=== PATIENT | female | born 1990 | race Caucasian/White ===

== ENCOUNTER 2018-04-16 19:14 | Emergency (ER) | payer OTHER ==
[~2018-04-16 19:14] MED LIST: FAMO20TA28 PO; FERR325T24 PO; FOLI0.4T56 PO; HYDR-385 PO; IBUP800T37 PO; OMEG500C7 PO; PREN-127 PO
[2018-04-16 19:22] VITALS: BP 121/85
--- NOTE | 2018-04-16 19:23 | ER Report ---
History and Physical Time Seen By MD: 19:23 HPI/ROS CHIEF COMPLAINT: epigastric pain HISTORY OF PRESENT ILLNESS: This is a 27 year old female. She has some stomach pain in the epigastric area. Started this morning. Has had this in the past with later half of . Had been hiking today, and has had several bottles of water to drink, but has not urinated this afternoon. Her CHIEF PSYCHOLOGIST is evaluating her for vaginal infection. No dysuria. No bowel problems. 11 weeks , no vaginal bleeding. No leakage of fluid. Has nausea but no vomiting. No shortness of breath and no chest pain. Allergies: Coded Allergies: latex (Verified Allergy, Unknown, hives, rash, 07/02/16) Home Meds Active Scripts Amoxicillin (AMOXICILLIN) 500 Mg Capsule, 1 CAP PO Q8H, #15 CAPSULE 0 Refills Prov:DAWOOD DALE MD 04/16/18 Reported Medications Vits W-Ca,Fe,Fa(<1MG) ( VITAMINS) 1 Each Tablet, 1 EACH PO DAILY, TAB 06/14/16 Discontinued Reported Medications Famotidine (PEPCID) 20 Mg Tablet, 20 MG PO QDAY, #10 TAB 06/14/16 Discontinued Scripts Ibuprofen (IBUPROFEN) 800 Mg Tablet, 800 MG PO Q8H, #20 TAB 0 Refills Prov:JUSTINA KRAMER DO 07/01/16 Hydrocodone Bit/Acetaminophen (HYDROCODON-ACETAMINOPHEN 5-325) 1 Each Tablet, 1 EACH PO Q4H Y for PAIN, #30 TAB 0 Refills Prov:JUSTINA KRAMER DO 07/01/16 Reviewed Nurses Notes: Yes Hx Smoking: No Smoking Status: Never Smoker Exposure to Second Hand Smoke?: No Constitutional Vital Sign - Last 24 Hours 04/16/18 19:22 Temp 98.5 Pulse 73 Resp 18 B/P (MAP) 121/85 Pulse Ox 99 O2 Delivery Room Air Intake and Output 04/16/18 04/16/18 04/17/18 14:59 22:59 06:59 Intake Total 1000 ml Balance 1000 ml Physical Exam General Appearance: The patient is alert. No acute distress. Non-toxic in appearance. Eyes: Pupils are equal, round. Reactive to light. No pallor, injection or icterus. Extraocular movements are intact. ENT: Mucous membranes are moist. Normal oral mucosa. Posterior oropharynx is normal. Neck: Supple and non tender. Respiratory: Lungs are clear to auscultation. Cardiovascular: Regular rate and rhythm. No murmurs, gallops or rubs. Normal capillary refill. No edema. Gastrointestinal: Abdomen is soft, tender in the epigastric area. Nondistended. No masses or organomegaly. Normal active bowel sounds. No costovertebral angle tenderness with percussion. Neurological: Alert and oriented x3. No focal neurologic deficits Skin: Warm and dry. Sunburn Musculoskeletal: Extremities are nontender. No tenderness in palpation of the cervical, thoracic and lumbar spine. DIFFERENTIAL DIAGNOSIS: After history and physical exam, differential diagnosis was considered for patient with epigastric pain including but not limited to biliary colic, cholecystitis, peptic ulcer disease, pancreatitis, and gastroenteritis. Medical Decision Making Data Points Result Diagram: 04/16/18 1749 04/16/18 1749 Laboratory Hematology Test 04/16/18 17:49 04/16/18 21:30 Red Blood Count 4.87 M/uL (4.17-5.56) Mean Corpuscular Volume 85.6 fL (80.0-96.0) Mean Corpuscular Hemoglobin 29.3 pg (26.0-33.0) Mean Corpuscular Hemoglobin Concent 34.3 g/dL (32.0-36.0) Red Cell Distribution Width 13.3 % (11.5-14.5) Mean Platelet Volume 8.9 fL (7.2-11.1) Neutrophils (%) (Auto) 74.4 % (39.4-72.5) Lymphocytes (%) (Auto) 19.4 % (17.6-49.6) Monocytes (%) (Auto) 5.3 % (4.1-12.4) Eosinophils (%) (Auto) 0.7 % (0.4-6.7) Basophils (%) (Auto) 0.2 % (0.3-1.4) Nucleated RBC Relative Count (auto) 0.1 /100WBC Neutrophils # (Auto) 9.6 K/uL (2.0-7.4) Lymphocytes # (Auto) 2.5 K/uL (1.3-3.6) Monocytes # (Auto) 0.7 K/uL (0.3-1.0) Eosinophils # (Auto) 0.1 K/uL (0.0-0.5) Basophils # (Auto) 0.0 K/uL (0.0-0.1) Nucleated RBC Absolute Count (auto) 0.01 K/uL Sodium Level 136 mmol/L (137-145) Potassium Level 3.3 mmol/L (3.5-5.0) Chloride Level 100 mmol/L (98-107) Carbon Dioxide Level 25 mmol/L (22-31) Blood Urea Nitrogen 17 mg/dl (7-18) Creatinine 0.70 mg/dl (0.52-1.04) Glomerular Filtration Rate Calc > 60.0 Random Glucose 97 mg/dl (75-110) Calcium Level 9.6 mg/dl (8.4-10.2) Total Bilirubin 0.3 mg/dl (0.2-1.3) Aspartate Amino Transf (AST/SGOT) 16 U/L (0-35) Alanine Aminotransferase (ALT/SGPT) 20 U/L (0-56) Alkaline Phosphatase 56 U/L (0-126) Total Protein 5.8 gm/dl (6.3-8.2) Albumin 3.9 g/dl (3.5-5.0) Amylase Level 71 U/L (0-110) Lipase 117 U/L (23-300) Helicobacter pylori IgG Antibody Negative (NEGATIVE) Urine Color Yellow Urine Clarity Slightly-cloudy Urine pH 5.0 pH (4.8-9.5) Urine Specific [place] 1.018 Urine Protein Negative mg/dL (NEGATIVE) Urine Glucose (UA) Negative mg/dL (NEGATIVE) Urine Ketones Trace mg/dL (NEGATIVE) Urine Blood Negative (NEGATIVE) Urine Nitrite Negative (NEGATIVE) Urine Bilirubin Negative (NEGATIVE) Urine Urobilinogen Negative mg/dL (0.2-1.9) Urine Leukocyte Esterase Large (NEGATIVE) Urine RBC 2 /HPF (0-2/HPF) Urine WBC 15 /HPF (0-5/HPF) Urine Squamous Epithelial Cells Many /LPF (</=FEW) Urine Bacteria Few /HPF (NONE-FEW) Urine Mucus Few /HPF (NONE-FEW) Chemistry Test 04/16/18 17:49 04/16/18 21:30 White Blood Count 12.9 k/uL (4.5-11.0) Red Blood Count 4.87 M/uL (4.17-5.56) Hemoglobin 14.3 g/dL (12.0-16.0) Hematocrit 41.6 % (34.0-47.0) Mean Corpuscular Volume 85.6 fL (80.0-96.0) Mean Corpuscular Hemoglobin 29.3 pg (26.0-33.0) Mean Corpuscular Hemoglobin Concent 34.3 g/dL (32.0-36.0) Red Cell Distribution Width 13.3 % (11.5-14.5) Platelet Count 200 K/uL (150-450) Mean Platelet Volume 8.9 fL (7.2-11.1) Neutrophils (%) (Auto) 74.4 % (39.4-72.5) Lymphocytes (%) (Auto) 19.4 % (17.6-49.6) Monocytes (%) (Auto) 5.3 % (4.1-12.4) Eosinophils (%) (Auto) 0.7 % (0.4-6.7) Basophils (%) (Auto) 0.2 % (0.3-1.4) Nucleated RBC Relative Count (auto) 0.1 /100WBC Neutrophils # (Auto) 9.6 K/uL (2.0-7.4) Lymphocytes # (Auto) 2.5 K/uL (1.3-3.6) Monocytes # (Auto) 0.7 K/uL (0.3-1.0) Eosinophils # (Auto) 0.1 K/uL (0.0-0.5) Basophils # (Auto) 0.0 K/uL (0.0-0.1) Nucleated RBC Absolute Count (auto) 0.01 K/uL Glomerular Filtration Rate Calc > 60.0 Calcium Level 9.6 mg/dl (8.4-10.2) Total Bilirubin 0.3 mg/dl (0.2-1.3) Aspartate Amino Transf (AST/SGOT) 16 U/L (0-35) Alanine Aminotransferase (ALT/SGPT) 20 U/L (0-56) Alkaline Phosphatase 56 U/L (0-126) Total Protein 5.8 gm/dl (6.3-8.2) Albumin 3.9 g/dl (3.5-5.0) Amylase Level 71 U/L (0-110) Lipase 117 U/L (23-300) Helicobacter pylori IgG Antibody Negative (NEGATIVE) Urine Color Yellow Urine Clarity Slightly-cloudy Urine pH 5.0 pH (4.8-9.5) Urine Specific [place] 1.018 Urine Protein Negative mg/dL (NEGATIVE) Urine Glucose (UA) Negative mg/dL (NEGATIVE) Urine Ketones Trace mg/dL (NEGATIVE) Urine Blood Negative (NEGATIVE) Urine Nitrite Negative (NEGATIVE) Urine Bilirubin Negative (NEGATIVE) Urine Urobilinogen Negative mg/dL (0.2-1.9) Urine Leukocyte Esterase Large (NEGATIVE) Urine RBC 2 /HPF (0-2/HPF) Urine WBC 15 /HPF (0-5/HPF) Urine Squamous Epithelial Cells Many /LPF (</=FEW) Urine Bacteria Few /HPF (NONE-FEW) Urine Mucus Few /HPF (NONE-FEW) Urinalysis Test 04/16/18 21:30 Urine Color Yellow Urine Clarity Slightly-cloudy Urine pH 5.0 pH (4.8-9.5) Urine Specific [place] 1.018 Urine Protein Negative mg/dL (NEGATIVE) Urine Glucose (UA) Negative mg/dL (NEGATIVE) Urine Ketones Trace mg/dL (NEGATIVE) Urine Blood Negative (NEGATIVE) Urine Nitrite Negative (NEGATIVE) Urine Bilirubin Negative (NEGATIVE) Urine Urobilinogen Negative mg/dL (0.2-1.9) Urine Leukocyte Esterase Large (NEGATIVE) Urine RBC 2 /HPF (0-2/HPF) Urine WBC 15 /HPF (0-5/HPF) Urine Squamous Epithelial Cells Many /LPF (</=FEW) Urine Bacteria Few /HPF (NONE-FEW) Urine Mucus Few /HPF (NONE-FEW) ED Course/Re-evaluation Clinical Indication for ER IV: Hydration, IV Access ED Course Labs show mild elevation of white count. Mild decrease in potassium. Urinalysis with changes that could represent infection vs contamination. Culture ordered. Started on Amoxicillin. Also seemed dehydrated. Two liter os normal saline were given. Also Pepcid, and sounds like she has a history of some gastritis with last so will restart Pepcid. Decision to Disposition Date: Apr 16, 2018 Decision to Disposition Time: 21:55 Depart Departure Latest Vital Signs Vital Signs Date Time Temp Pulse Resp B/P (MAP) Pulse Ox O2 Delivery O2 Flow Rate FiO2 04/16/18 19:22 98.5 73 18 121/85 99 Room Air Impression: Primary Impression: Urinary tract infection Additional Impression: Gastritis Condition: Improved Disposition: HOME OR SELF-CARE New Scripts Amoxicillin (AMOXICILLIN) 500 Mg Capsule 1 CAP PO Q8H, #15 CAPSULE 0 Refills Prov: DAWOOD DALE MD 04/16/18 Patient Instructions: Gastritis (ED), Urinary Tract Infection in Women (ED) Additional Instructions: We are running a culture on your urine. Based on results the changes seen in the urine could represent an infection or contamination from skin bacteria and cells. Call and let your CHIEF PSYCHOLOGIST know you were here in the ER today. Take Amoxicillin 500mg three times a day for 5 days. Take Pepcid 20mg, once or twice a day as needed. You can also continue to take TUMS. Increase fluid intake over the next few days. Problem Qualifiers Primary Impression: Urinary tract infection Urinary tract infection type: acute cystitis Hematuria presence: without hematuria Qualified Codes: N30.00 - Acute cystitis without hematuria Additional Impression: Gastritis Gastritis type: unspecified gastritis Chronicity: acute Gastritis bleeding : without bleeding Qualified Codes: K29.00 - Acute gastritis without bleeding DAWOOD DALE MD Apr 16, 2018 19:23
[2018-04-16] MEDS ORDERED: NS(*) 0.9% 1000 ML BAG 1,000 ML IV ONE ×2 (19:40→20:50)
[2018-04-16] MEDS ORDERED: FAMOTIDINE(*) 20MG/50ML PREMIX 50 ML IVPB ONE (19:40)
[2018-04-16 20:00] LABS: PLATELET COUNT, AUTOMATED 200 K/uL (150-450)
[2018-04-16] MEDS ORDERED: AMOXICILLIN 500 MG CAP PO ONE (21:55)
[2018-04-16] MEDS ORDERED: AMOX-362 PO (21:56)
== END 2018-04-16 22:09 | disposition home or self-care (01) ==
LOC: ER 19:23
DX: O23.41 Unspecified infection of urinary tract in pregnancy, first trimester (principal); O26.891 Other specified pregnancy related conditions, first trimester; Z3A.11 11 weeks gestation of pregnancy
CPT/HCPCS: 81001; 82150; 83690; 85025; 86677; 87088; 96361; 96365; 99284; J3490; J7030; 82040; 82247; 82310; 82374; 82435; 82565; 82947; 84075; 84132; 84155; 84295; 84450; 84460; 84520

== ENCOUNTER 2018-05-13 01:11 | Observation (INO) | payer OTHER ==
[2018-05-13] VITALS (10 sets, daily range): BP systolic 63–127; BP diastolic 55–80
[~2018-05-13 01:11] MED LIST changes: +AMOX-362 PO
[2018-05-13] MEDS ORDERED: NS(*) 0.9% 1000 ML BAG 1,000 ML IV ONE (01:13)
--- NOTE | 2018-05-13 01:13 | ER Report ---
History and Physical Time Seen By MD: 01:12 HPI/ROS CHIEF COMPLAINT: Diffuse abdominal pain starting at approximately 1900 hrs. HISTORY OF PRESENT ILLNESS: Patient is a 27-year-old female here 14 weeks with complaints of diffuse severe abdominal pain since approximately 1900 hrs. Patient reports that she does have some whitish vaginal discharge however she denies hematuria, vaginal bleeding, blood in the stool, fevers, , chest pain, shortness breath. Patient does complain of nausea and vomiting since time of onset. Patient has had one previous that was brought to full-term delivery. Patient denies dysuria, burning with urination, foul- smelling urine, flank pain. Patient was seen in the emergency department earlier this month for similar symptoms and was diagnosed with a UTI/gastritis and started on amoxicillin as well as Tums. Patient reports alleviation of symptoms until this evening. Patient did take antacids prior to arrival without relief of symptoms. REVIEW OF SYSTEMS: Constitutional: No fever, no chills. Eyes: No discharge. ENT: No sore throat. Cardiovascular: No chest pain, no palpitations. Respiratory: No cough, no shortness of breath. Gastrointestinal: + diffuse abdominal pain, + nausea and vomiting. Genitourinary: No hematuria, + vaginal white discharge Musculoskeletal: No back pain. Skin: No rashes. Neurological: No headache. Allergies: Coded Allergies: latex (Verified Allergy, Unknown, hives, rash, 07/02/16) Home Meds Reported Medications Vits W-Ca,Fe,Fa(<1MG) ( VITAMINS) 1 Each Tablet, 1 EACH PO DAILY, TAB 06/14/16 Discontinued Scripts Amoxicillin (AMOXICILLIN) 500 Mg Capsule, 1 CAP PO Q8H, #15 CAPSULE 0 Refills Prov:DAWOOD DALE MD 04/16/18 Past Medical/Surgical History Vaginal Delivery at Term Hx Smoking: No Smoking Status: Never Smoker Exposure to Second Hand Smoke?: No Hx Substance Use Disorder: No Hx Alcohol Use: No Constitutional Vital Sign - Last 24 Hours 05/13/18 05/13/18 05/13/18 05/13/18 01:14 01:16 01:21 01:30 Temp 97.9 Pulse 61 68 Resp 16 B/P (MAP) 111/68 111/68 (82) 128/94 (105) Pulse Ox 97 97 O2 Delivery Room Air 05/13/18 05/13/18 05/13/18 05/13/18 01:36 01:51 02:00 02:06 Pulse 69 72 61 B/P (MAP) 93/55 (68) Pulse Ox 97 93 97 05/13/18 05/13/18 05/13/18 05/13/18 02:21 02:30 02:36 02:51 Pulse 62 72 72 B/P (MAP) 108/73 (85) Pulse Ox 96 95 95 05/13/18 05/13/18 05/13/18 05/13/18 03:00 03:06 03:11 03:26 Pulse 73 ? B/P (MAP) 113/77 (89) Pulse Ox 96 97 05/13/18 05/13/18 05/13/18 05/13/18 03:27 03:30 03:41 03:56 Pulse 71 66 B/P (MAP) 112/80 (91) 118/78 (91) Pulse Ox 96 97 05/13/18 05/13/18 05/13/18 05/13/18 04:00 04:20 04:30 04:35 Pulse 88 ??? B/P (MAP) 121/79 (93) 113/74 (87) Pulse Ox 96 95 05/13/18 05/13/18 04:50 05:00 Pulse 80 B/P (MAP) 102/71 (81) Pulse Ox 95 Physical Exam General Appearance: The patient is alert, has no immediate need for airway protection and no signs of toxicity. + uncomfortable due to abdominal pain Eyes: Pupils equal and round no pallor or injection. ENT, Mouth: Mucous membranes are moist. Respiratory: There are no retractions, lungs are clear to auscultation. Cardiovascular: Regular rate and rhythm. Gastrointestinal: Abdomen is soft and + diffusely tender, no masses, bowel sounds normal. Neurological: + No focal deficits Skin: Warm and dry, no rashes. Musculoskeletal: Neck is supple non tender. DIFFERENTIAL DIAGNOSIS: After history and physical exam differential diagnosis was considered for miscarriage, urinary tract infection, ectopic , gastroenteritis, viral or bacterial intra-abdominal infection. Medical Decision Making Data Points Result Diagram: 05/13/18 0128 05/13/18 0128 Laboratory Hematology Test 05/13/18 01:28 6/29/18 03:27 Red Blood Count 4.48 M/uL (4.17-5.56) Mean Corpuscular Volume 85.5 fL (80.0-96.0) Mean Corpuscular Hemoglobin 29.3 pg (26.0-33.0) Mean Corpuscular Hemoglobin Concent 34.3 g/dL (32.0-36.0) Red Cell Distribution Width 13.2 % (11.5-14.5) Mean Platelet Volume 8.7 fL (7.2-11.1) Neutrophils (%) (Auto) 83.0 % (39.4-72.5) Lymphocytes (%) (Auto) 11.4 % (17.6-49.6) Monocytes (%) (Auto) 3.9 % (4.1-12.4) Eosinophils (%) (Auto) 1.1 % (0.4-6.7) Basophils (%) (Auto) 0.6 % (0.3-1.4) Nucleated RBC Relative Count (auto) 0.0 /100WBC Neutrophils # (Auto) 10.8 K/uL (2.0-7.4) Lymphocytes # (Auto) 1.5 K/uL (1.3-3.6) Monocytes # (Auto) 0.5 K/uL (0.3-1.0) Eosinophils # (Auto) 0.1 K/uL (0.0-0.5) Basophils # (Auto) 0.1 K/uL (0.0-0.1) Nucleated RBC Absolute Count (auto) 0.00 K/uL Sodium Level 134 mmol/L (137-145) Potassium Level 3.3 mmol/L (3.5-5.0) Chloride Level 101 mmol/L (98-107) Carbon Dioxide Level 25 mmol/L (22-31) Blood Urea Nitrogen 11 mg/dl (7-18) Creatinine 0.70 mg/dl (0.52-1.04) Glomerular Filtration Rate Calc > 60.0 Random Glucose 106 mg/dl (75-110) Calcium Level 8.4 mg/dl (8.4-10.2) Total Bilirubin 0.3 mg/dl (0.2-1.3) Aspartate Amino Transf (AST/SGOT) 13 U/L (0-35) Alanine Aminotransferase (ALT/SGPT) 22 U/L (0-56) Alkaline Phosphatase 57 U/L (0-126) C-Reactive Protein 2.6 mg/dl (<1.0) Total Protein 6.5 g/dl (6.3-8.2) Albumin 3.4 g/dl (3.5-5.0) Lipase 84 U/L (23-300) Human Chorionic Gonadotropin, Quant 48788 mIU/ml Urine Color Yellow Urine Clarity Cloudy Urine pH 6.0 pH (4.8-9.5) Urine Specific [place] 1.020 Urine Protein Negative mg/dL (NEGATIVE) Urine Glucose (UA) Negative mg/dL (NEGATIVE) Urine Ketones 80 mg/dL (NEGATIVE) Urine Blood Negative (NEGATIVE) Urine Nitrite Negative (NEGATIVE) Urine Bilirubin Negative (NEGATIVE) Urine Urobilinogen Negative mg/dL (0.2-1.9) Urine Leukocyte Esterase Trace (NEGATIVE) Urine RBC 1 /HPF (0-2/HPF) Urine WBC 4 /HPF (0-5/HPF) Urine Squamous Epithelial Cells Many /LPF (</=FEW) Urine Amorphous Crystals Many /HPF Urine Bacteria Negative /HPF (NONE-FEW) Urine Mucus Many /HPF (NONE-FEW) Chemistry Test 05/13/18 01:28 05/13/18 03:27 White Blood Count 13.1 k/uL (4.5-11.0) Red Blood Count 4.48 M/uL (4.17-5.56) Hemoglobin 13.1 g/dL (12.0-16.0) Hematocrit 38.3 % (34.0-47.0) Mean Corpuscular Volume 85.5 fL (80.0-96.0) Mean Corpuscular Hemoglobin 29.3 pg (26.0-33.0) Mean Corpuscular Hemoglobin Concent 34.3 g/dL (32.0-36.0) Red Cell Distribution Width 13.2 % (11.5-14.5) Platelet Count 163 K/uL (150-450) Mean Platelet Volume 8.7 fL (7.2-11.1) Neutrophils (%) (Auto) 83.0 % (39.4-72.5) Lymphocytes (%) (Auto) 11.4 % (17.6-49.6) Monocytes (%) (Auto) 3.9 % (4.1-12.4) Eosinophils (%) (Auto) 1.1 % (0.4-6.7) Basophils (%) (Auto) 0.6 % (0.3-1.4) Nucleated RBC Relative Count (auto) 0.0 /100WBC Neutrophils # (Auto) 10.8 K/uL (2.0-7.4) Lymphocytes # (Auto) 1.5 K/uL (1.3-3.6) Monocytes # (Auto) 0.5 K/uL (0.3-1.0) Eosinophils # (Auto) 0.1 K/uL (0.0-0.5) Basophils # (Auto) 0.1 K/uL (0.0-0.1) Nucleated RBC Absolute Count (auto) 0.00 K/uL Glomerular Filtration Rate Calc > 60.0 Calcium Level 8.4 mg/dl (8.4-10.2) Total Bilirubin 0.3 mg/dl (0.2-1.3) Aspartate Amino Transf (AST/SGOT) 13 U/L (0-35) Alanine Aminotransferase (ALT/SGPT) 22 U/L (0-56) Alkaline Phosphatase 57 U/L (0-126) C-Reactive Protein 2.6 mg/dl (<1.0) Total Protein 6.5 g/dl (6.3-8.2) Albumin 3.4 g/dl (3.5-5.0) Lipase 84 U/L (23-300) Human Chorionic Gonadotropin, Quant 48852 mIU/ml Urine Color Yellow Urine Clarity Cloudy Urine pH 6.0 pH (4.8-9.5) Urine Specific [place] 1.020 Urine Protein Negative mg/dL (NEGATIVE) Urine Glucose (UA) Negative mg/dL (NEGATIVE) Urine Ketones 80 mg/dL (NEGATIVE) Urine Blood Negative (NEGATIVE) Urine Nitrite Negative (NEGATIVE) Urine Bilirubin Negative (NEGATIVE) Urine Urobilinogen Negative mg/dL (0.2-1.9) Urine Leukocyte Esterase Trace (NEGATIVE) Urine RBC 1 /HPF (0-2/HPF) Urine WBC 4 /HPF (0-5/HPF) Urine Squamous Epithelial Cells Many /LPF (</=FEW) Urine Amorphous Crystals Many /HPF Urine Bacteria Negative /HPF (NONE-FEW) Urine Mucus Many /HPF (NONE-FEW) Urinalysis Test 05/13/18 03:27 Urine Color Yellow Urine Clarity Cloudy Urine pH 6.0 pH (4.8-9.5) Urine Specific [place] 1.020 Urine Protein Negative mg/dL (NEGATIVE) Urine Glucose (UA) Negative mg/dL (NEGATIVE) Urine Ketones 80 mg/dL (NEGATIVE) Urine Blood Negative (NEGATIVE) Urine Nitrite Negative (NEGATIVE) Urine Bilirubin Negative (NEGATIVE) Urine Urobilinogen Negative mg/dL (0.2-1.9) Urine Leukocyte Esterase Trace (NEGATIVE) Urine RBC 1 /HPF (0-2/HPF) Urine WBC 4 /HPF (0-5/HPF) Urine Squamous Epithelial Cells Many /LPF (</=FEW) Urine Amorphous Crystals Many /HPF Urine Bacteria Negative /HPF (NONE-FEW) Urine Mucus Many /HPF (NONE-FEW) EKG/Imaging Imaging RIGHT LOWER QUADRANT INDICATION: Abdominal pain. 14 weeks 4 days . EXAM DATE: 05/13/2018 1:13 AM COMPARISON: None. TECHNIQUE: Limited grayscale and color Doppler imaging of the right lower quadrant was performed to evaluate for appendicitis. FINDINGS: There is a blind-ending tubular structure in right lower quadrant measuring 15 mm in diameter. There is noncompressible have slightly increased blood flow on color Doppler imaging.. No free fluid or mass demonstrated. IMPRESSION: 15 mm diameter tubular structure in the right lower quadrant suspicious for an inflamed appendix in the appropriate setting. INDICATION: Diffuse abdominal pain. COMPARISON: None. TECHNIQUE: Grayscale, color Doppler and M-mode ultrasound images of the fetus and maternal organs were obtained. FINDINGS: Estimated date of delivery: 11/07/2018. Age by dates: 14 weeks, 4 days Number of fetuses: 1 position: Breech Placental location: Posterior, no previa. Small hypoechoic regions within the placenta likely represent vascular lakes. Cervix: The uterine cervix measures 4.5 cm in length and closed. Amniotic fluid volume: Grossly normal. Biometry as follows: Biparietal diameter: 2.72 cm 14 weeks, 6 days Head circumference: 10.50 cm 15 weeks, 0 days Abdominal circumference: 8.56 cm 14 weeks, 6 days Femur length: 1.55 cm 14 weeks, 4 days Average age by ultrasound: 14 weeks, 6 days Estimated weight: 105 gm weight percentile: 48th %tile anatomic survey was not performed. heart rate is 149 BPM IMPRESSION: 1. Single intrauterine gestation with average ultrasound age of 14 weeks 6 days , corresponding reported gestational age of 14 weeks 4 days. Estimated weight is in the 48th %tile. heart rate is 149 BPM. Full anatomic survey was not performed. 2. Normal uterine cervix, no placenta previa. EXAMINATION: LIMITED ABDOMINAL ULTRASOUND DATE: 05/13/2018 2:29 AM INDICATION: Diffuse abdominal pain. TECHNIQUE: Davis scale, color and pulsed Doppler ultrasound images of the right upper quadrant were obtained. COMPARISON: None. FINDINGS: Pancreas: The pancreas is grossly normal. Aorta and IVC: The imaged abdominal aorta and IVC are patent. Liver: The liver shows normal shape, parenchymal echogenicity and echotexture. The right hepatic lobe measures 16 cm craniocaudal, which is within normal limits. There is no definite focal lesion in the liver. The main portal vein is patent with hepatopedal flow. Bile ducts: The intrahepatic bile ducts are not dilated. The common bile duct measures 2 mm in diameter, which is normal. Gallbladder: The gall bladder is unremarkable with no cholelithiasis, wall thickening, pericholecystic fluid, or sonographic Haas's sign. Kidney: The right kidney measures 10.0 x 3.4 x 4.7 cm. The parenchymal echogenicity and thickness appear within normal range. No focal lesion is demonstrated. No hydronephrosis. No ascites. IMPRESSION: No acute abnormality. ED Course/Re-evaluation ED Course Patient is a 27-year-old female 14 weeks here with complaints of diffuse abdominal pain with whitish vaginal discharge. Patient reports that the pain started approximately 1900 hrs. and has been persistent and constant. She reports having episodes of nausea and vomiting since time of onset. Patient denies vaginal bleeding, hematuria, melena. She has had 1 prior without complications and denies prior surgical procedures of the abdomen. Labs and abdominal ultrasound were ordered for evaluation of abdominal pain and were positive for a leukocytosis of 13,000, ultrasound was unremarkable for suspected appendicitis even though clinical presentation of abdominal pain is diffuse and not localized strictly to the right lower quadrant abdomen. Fentanyl , fluids and Zofran were ordered for symptom management. I discussed the patient with Dr. Abel with general surgery who accepted the patient for surgical intervention at 6:00 this morning. Patient was given a dose of Zosyn and repeat analgesia. Decision to Disposition Date: May 13, 2018 Decision to Disposition Time: 04:20 Depart Departure Latest Vital Signs Vital Signs Date Time Temp Pulse Resp B/P (MAP) Pulse Ox O2 Delivery O2 Flow Rate FiO2 05/13/18 05:00 102/71 (81) 05/13/18 04:50 80 95 05/13/18 01:14 97.9 16 Room Air Impression: Primary Impression: Appendicitis Condition: Improved Disposition: ADMIT FROM ER TO OR FEMI STRICKLAND DO May 13, 2018 01:13
[2018-05-13] MEDS ORDERED: ONDANSETRON 4 MG/2 ML VIAL IVP ONE (01:15)
[2018-05-13] MEDS ORDERED: fentaNYL CITR 100 MCG/2 ML AMP IVP ONE (01:30)
[2018-05-13 01:36] LABS: PLATELET COUNT, AUTOMATED 163 K/uL (150-450)
[2018-05-13] MEDS: HYDROmorphone* 1 MG/ML 1 MG/ML ML IVP ONE ×2 (03:16→03:53)
[2018-05-13] MEDS ORDERED: PIPERACILLIN/TAZO*3.375GM VIAL 3.375 GM in NS(*) 0.9% 100 ML ADDVANT BAG 100 ML IVPB ONE (03:35)
--- NOTE | 2018-05-13 04:04 | RADIOLOGY IMAGING REPORT ---
FACILITY: [facility] PATIENT NAME: Nathaly Zheng : 1990 MR: [id number] V: [id number] EXAM DATE: [id number] ORDERING PHYSICIAN: FEMI STRICKLAND TECHNOLOGIST: Location: [facility] [place] Patient: Nathaly Zheng : 1990 Visit/Account:[id number] Date of Sevice: 05/13/2018 ADDENDUM #1 Patient is reportedly 14 weeks 4 days . Report Dictated By: Erik Rose MD at 05/13/2018 4:02 AM Report E-Signed By: Erik Rose MD at 05/13/2018 4:02 AM ORIGINAL REPORT EXAMINATION: LIMITED ABDOMINAL ULTRASOUND DATE: 05/13/2018 2:29 AM INDICATION: Diffuse abdominal pain. TECHNIQUE: Davis scale, color and pulsed Doppler ultrasound images of the right upper quadrant were ob tained. COMPARISON: None. FINDINGS: Pancreas: The pancreas is grossly normal. Aorta and IVC: The imaged abdominal aorta and IVC are patent. Liver: The liver shows normal shape, parenchymal echogenicity and echotexture. The right hepatic lobe measures 16 cm craniocaudal, which is within normal limits. There is no definite focal lesion in the liver. The main portal vein is patent with hepatopedal flow. Bile ducts: The intrahepatic bile ducts are not dilated. The common bile duct measures 2 mm in diamet er, which is normal. Gallbladder: The gall bladder is unremarkable with no cholelithiasis, wall thickening, pericholecysti c fluid, or sonographic Haas's sign. Kidney: The right kidney measures 10.0 x 3.4 x 4.7 cm. The parenchymal echogenicity and thickness renetta ear within normal range. No focal lesion is demonstrated. No hydronephrosis. No ascites. IMPRESSION: No acute abnormality. Report Dictated By: Erik Rose MD at 05/13/2018 3:58 AM Report E-Signed By: Erik Rose MD at 05/13/2018 4:01 AM WSN:[id number]
--- NOTE | 2018-05-13 04:06 | RADIOLOGY IMAGING REPORT ---
FACILITY: [facility] PATIENT NAME: Nathaly Zheng : 1990 MR: [id number] V: [id number] EXAM DATE: ORDERING PHYSICIAN: FEMI STRICKLAND TECHNOLOGIST: Location: [facility] Patient: Nathaly Zheng : 1990 Visit/Account:[id number] Date of Sevice: 05/13/2018 RIGHT LOWER QUADRANT INDICATION: Abdominal pain. 14 weeks 4 days . EXAM DATE: 05/13/2018 1:13 AM COMPARISON: None. TECHNIQUE: Limited grayscale and color Doppler imaging of the right lower quadrant was performed to evaluate for appendicitis. FINDINGS: There is a blind-ending tubular structure in right lower quadrant measuring 15 mm in diameter. There is noncompressible have slightly increased blood flow on color Doppler imaging.. No free fluid or m ass demonstrated. IMPRESSION: 15 mm diameter tubular structure in the right lower quadrant suspicious for an inflamed a ppendix in the appropriate setting. Dr. Rose discussed this case with FEMI STRICKLAND on 05/13/2018 4:00 AM. Report Dictated By: Erik Rose MD at 05/13/2018 3:52 AM Report E-Signed By: Erik Rose MD at 05/13/2018 4:02 AM WSN:[id number]
--- NOTE | 2018-05-13 04:11 | RADIOLOGY IMAGING REPORT ---
FACILITY: [facility] PATIENT NAME: Nathaly Zheng : 1990 MR: [id number] V: [id number] EXAM DATE: [id number] ORDERING PHYSICIAN: FEMI STRICKLAND TECHNOLOGIST: Location: [facility] Patient: Nathaly Zheng : 1990 Visit/Account:[id number] Date of Sevice: 05/13/2018 EXAMINATION: LIMITED OB ULTRASOUND DATE: 05/13/2018 2:37 AM. INDICATION: Diffuse abdominal pain. COMPARISON: None. TECHNIQUE: Grayscale, color Doppler and M-mode ultrasound images of the fetus and maternal organs wer e obtained. FINDINGS: Estimated date of delivery: 11/07/2018. Age by dates: 14 weeks, 4 days Number of fetuses: 1 position: Breech Placental location: Posterior, no previa. Small hypoechoic regions within the placenta likely repre sent vascular lakes. Cervix: The uterine cervix measures 4.5 cm in length and closed. Amniotic fluid volume: Grossly normal. Biometry as follows: Biparietal diameter: 2.72 cm 14 weeks, 6 days Head circumference: 10.50 cm 15 weeks, 0 days Abdominal circumference: 8.56 cm 14 weeks, 6 days Femur length: 1.55 cm 14 weeks, 4 days Average age by ultrasound: 14 weeks, 6 days Estimated weight: 105 gm weight percentile: 48th %tile anatomic survey was not performed. heart rate is 149 BPM IMPRESSION: 1. Single intrauterine gestation with average ultrasound age of 14 weeks 6 days, corresponding repor briseyda gestational age of 14 weeks 4 days. Estimated weight is in the 48th %tile. heart rat e is 149 BPM. Full anatomic survey was not performed. 2. Normal uterine cervix, no placenta previa. Report Dictated By: Erik Rose MD at 05/13/2018 4:03 AM Report E-Signed By: Erik Rose MD at 05/13/2018 4:08 AM WSN:[id number]
[2018-05-13] MEDS ORDERED: NORMOSOL R SOLN(*) 1000 ML BAG 1,000 ML IV ONE (05:15)
[2018-05-13] MEDS ORDERED: ROPIVACAINE 0.5% 20 ML VIAL ONE (05:20)
--- NOTE | 2018-05-13 05:31 | Gen Surgery History & Physical ---
History of Present Illness Chief Complaint Abdominal pain History of Present Illness 27yo female, otherwise healthy, at 14weeks EGA, presents with abdominal pain that started last evening at about 1900. No N/V. No constipation or diarrhea. She had similar symptoms 1 month ago and she came in to the ER and was found to have a UTI and her symptoms resolved with antibiotics. Her UA during this visit is not c/w a UTI and abdominal U/S c/w appendicitis. OB U/S c /w viable, heathy, intrauterine . GB U/S unremarkable. I have been consulted to manage this patient's appendicitis. History Home Meds Reported Medications Vits W-Ca,Fe,Fa(<1MG) ( VITAMINS) 1 Each Tablet, 1 EACH PO DAILY, TAB 06/14/16 Discontinued Scripts Amoxicillin (AMOXICILLIN) 500 Mg Capsule, 1 CAP PO Q8H, #15 CAPSULE 0 Refills Prov:DAWOOD DALE MD 04/16/18 Allergies: Coded Allergies: latex (Verified Allergy, Unknown, hives, rash, 07/02/16) Review of Systems All Systems Reviewed/Normal: Yes, Except as Noted Gastrointestinal: Abdominal Pain Exam General Appearance: Alert, Awake, No Acute Distress, Afebrile Neuro: No Gross deficits Eyes: PERRLA GI: Other (RLQ TTP with focal peritonitis, gravid uterus with fundal height palpated midway between pubic bone and umbilicus) Extremities: Warm, Perfused Medical Decision Making Data Points Result Diagram: 05/13/18 0128 05/13/18 0128 Assessment and Plan Problems: (1) Appendicitis Status: Acute Assessment & Plan: 05/13/18: Admit, NPO, IV fluids, IV abx, to OR for lap appy. I have explained appendicitis and it's treatment to her in great detail. I have recommended lap appy and I have explained this surgery to her in great detail as well as the alternatives and risks. I have emphasized the risk of labor/miscarriage of her as a result of surgery as well but she could miscarry if surgery isn't performed and her appendix perforates. She seems to understand the PAR discussion and her questions have been answered. She indicates to me that she would like to proceed with this plan including surgery. (2) 14 weeks gestation of Status: Chronic Assessment & Plan: I spoke with the on-call OB via telephone who recommended a U/S postoperatively to monitor her for a viable fetus. Will plan on observing her after surgery to monitor her for signs/symptoms of labor. Condition Stable. Time Spent: < 30 min Venous Thromboembolism VTE Risk Physician Assess for VTE Risk: Yes Patient's VTE Risk: Low VTE Diagnostic Test 2 Days Prior to Admit: No Antithrombotics Is Pt On Any Antithrombotics?: No Problem Qualifiers (1) Appendicitis: Appendicitis type: acute appendicitis Acute appendicitis type: with localized peritonitis Qualified Codes: K35.3 - Acute appendicitis with localized peritonitis JOHANA DAILY MD May 13, 2018 05:31
[2018-05-13] MEDS ORDERED: fentaNYL CITR 250 MCG/5 ML AMP ONE (05:41)
[2018-05-13] MEDS ORDERED: LIDOCAINE 2% IV 100 MG/5ML SYR ONE (05:42)
[2018-05-13] MEDS ORDERED: PROPOFOL EMUL(*) 10MG/ML 20 ML 20 ML ONE (05:43)
[2018-05-13] MEDS ORDERED: DEXAMETHASONE SOD 4 MG/ML VIAL ONE (05:54)
[2018-05-13] MEDS ORDERED: ONDANSETRON 4 MG/2 ML VIAL ONE (05:55)
[2018-05-13] MEDS ORDERED: ROCURONIUM BROM 10 MG/ML 5 ML ONE (06:00)
[2018-05-13] MEDS ORDERED: ePHEDrine 25 MG/5 ML DISP.SYR IVP ONE (06:07)
[2018-05-13] MEDS ORDERED: SUGAMMADEX SOD 200 MG/2 ML SDV ONE (06:26)
[2018-05-13] MEDS ORDERED: NS(*) 0.9% 1000 ML BAG 1,000 ML IV PRN (06:52)
[2018-05-13] MEDS ORDERED: MORPHINE 2 MG/ML SYR IVP PRN (06:55)
[2018-05-13] MEDS ORDERED: ONDANSETRON 4 MG/2 ML VIAL IVP PRN (06:55)
[2018-05-13] MEDS ORDERED: FLUSH 10 ML SYR IVP PRN (06:55)
[2018-05-13] MEDS ORDERED: fentaNYL CITR 100 MCG/2 ML AMP ONE (06:58)
--- NOTE | 2018-05-13 07:01 | Post Operative Progress Note ---
Post Operative Progress Note Date: May 13, 2018 Time: 06:58 Surgeon: Franklyn Anesthesia: GETA by Dr. Koo Pre-Op Diagnosis: Acute appendicitis , 14 week EGA Post-Op Diagnosis: JOSE Findings: Inflamed appendix, no gangrene, perforation, abscess, or purulence Procedure(s): Lap appy Specimen Removed:(May be N/A): appendix Complications: None Fluids: see anesthesia record Estimated Blood Loss: Minimal Date OP Note Dictated: May 13, 2018 Time OP Note Dictated: 07:00 JOHANA DAILY MD May 13, 2018 07:01
[2018-05-13] MEDS: FAMOTIDINE 20 MG TAB PO SCH ×2 (09:00→20:48)
[2018-05-13] MEDS: DOCUSATE SODIUM 100 MG CAP PO SCH ×2 (09:00→20:48)
[2018-05-13] MEDS: [UNRECOGNIZED DRUG - OTHER] PO SCH (09:00)
[2018-05-13] MEDS: IRON PO SCH (09:00)
[2018-05-13] MEDS: PRENATAL PO SCH (09:00)
[2018-05-13] MEDS: MULTIVIT PO SCH (09:00)
--- NOTE | 2018-05-13 12:57 | OPERATIVE REPORT 1 ---
EVENT DATE: May 13, 2018 SURGEON: Leroy Estes MD ANESTHESIOLOGIST: Franco Koo MD ANESTHESIA: General endotracheal. PREOPERATIVE DIAGNOSIS 1. Acute appendicitis. 2. at 14 weeks estimated gestational age. POSTOPERATIVE DIAGNOSIS 1. Acute appendicitis. 2. at 14 weeks estimated gestational age. PROCEDURE PERFORMED Laparoscopic appendectomy. COMPLICATIONS None. CONDITION Stable. BLOOD LOSS Minimal. FINDINGS This patient had a gravid uterus, and we minimized any manipulation of the uterus during the surgery. In fact, there was no manipulation, but we minimized any sort of movement or bumping into it with our instruments. The appendix was thickened and appeared inflamed, but no purulence, gangrene, perforation or abscess. INDICATIONS This is a 27-year-old female who presented to the emergency room with abdominal pain that started last evening at about 7 p.m. She had an elevated white blood cell count, and her ultrasound was suspicious for acute appendicitis. PROCEDURE The patient was brought to the operating room, placed supine on the operating table. General endotracheal anesthesia was administered, and her abdomen was prepped and draped in a sterile fashion. I then injected the infraumbilical skin with 0.5% ropivacaine plain and made a curvilinear smiley face type incision in the inferior umbilical rim. I dissected through the dermis to the subcutaneous fat. I identified the midline fascia. I made a vertical incision in the midline fascia, and then placed two interrupted #0-Vicryl sutures transversely through the vertical fascial defect and then inserted a 12 mm James type port through this wound, and secured it into place with the sutures. I insufflated the abdomen to a pressure of 12 mmHg and then inserted a 5 mm 30-degree angle scope through this port. Next, the patient was placed in Trendelenburg, and I placed a suprapubic midline 5 mm port and a left lower quadrant 5 mm port, both under direct visualization without any problems. I then looked around the abdomen and saw the gravid uterus, which we stayed away from, and tried not to manipulate it at all. I then found her appendix in the right lower quadrant. This was semiretroperitoneal. It was covered with peritoneum all the way around, but it was not quite retrocecal. It seemed to be curled up into a ball. I divided the peritoneum to get into the retroperitoneal space. I divided the peritoneum to get into the retroperitoneal space to mobilize the appendix, and ultimately was able to get it freed up all the way down to its base, and divided the mesoappendix with a harmonic scalpel, and then divided the base of the appendix flush with the cecum with the Endo- JAYDA 45 mm stapler with the blue load. The appendix was placed in a surgical specimen retrieval bag and removed from the abdomen through the umbilical port site. I then inspected the right lower quadrant and the staple line was flush with the cecum and did not interfere with the terminal ileum, and there was no bleeding or other abnormalities. I then removed the 5 mm ports, desufflated the abdomen, removed the camera followed by the umbilical port, and then placed a running #0-Vicryl suture to the midline fascia, and then tied all of these midline Vicryl sutures down with good approximation of the fascial edges and no remaining fascial defect. I then closed the skin at each port site with 4-0 Monocryl running subcuticular sutures. Skin was cleaned, dried, and Steri- Strips were applied followed by sterile surgical dressings. The patient was awakened, extubated in the operating room and transported to the recovery room in stable condition, having tolerated the procedure without any apparent problems. heart tones were checked in recovery, which were normal. She will be admitted for observation, and we will get a ultrasound later on to confirm the status of her growing baby. ADELFO
[2018-05-13] MEDS ORDERED: FAMO20TA28 PO (15:20)
[2018-05-13] MEDS: SIMETHICONE 80 MG CHEW CHEW PRN (22:52)
[2018-05-14 04:16] VITALS: BP 119/95
[2018-05-14 07:54] VITALS: BP 108/66
[2018-05-14] MEDS ORDERED: DOCU-202 PO (08:00)
[2018-05-14] MEDS ORDERED: PER PO (08:00)
--- NOTE | 2018-05-14 08:05 | Short(Outpt) Discharge Summary ---
Discharge Summary Reason for Hosp/Final Diag: (1) Appendicitis Status: Acute Hospital Course & Plan: 05/13/18: Admit, NPO, IV fluids, IV abx, to OR for lap appy. I have explained appendicitis and it's treatment to her in great detail. I have recommended lap appy and I have explained this surgery to her in great detail as well as the alternatives and risks. I have emphasized the risk of labor/miscarriage of her as a result of surgery as well but she could miscarry if surgery isn't performed and her appendix perforates. She seems to understand the PAR discussion and her questions have been answered. She indicates to me that she would like to proceed with this plan including surgery.' 05/14/18: Doing well. Abdominal pain better. No cramps or uterine contractions. Tolerating diet. Will d/c this morning. (2) 14 weeks gestation of Status: Chronic Hospital Course & Plan: I spoke with the on-call OB via telephone who recommended a U/S postoperatively to monitor her for a viable fetus. Will plan on observing her after surgery to monitor her for signs/symptoms of labor. Departure Discharge to: Home, Self Care Discharge Instructions Home Meds Active Scripts Oxycodone/Acetaminophen (OXYCODONE/ACETAMINOPHEN 5MG/325 MG) 5 Mg/325 Mg Tab, 1 TAB PO Q4H Y for MODERATE PAIN, #20 TAB 0 Refills Prov:LEROY DAILY MD 05/14/18 Docusate Sodium (DOCUSATE SODIUM) 100 Mg Capsule, 1 CAP PO BID, #30 CAPSULE 0 Refills Prov:LEROY DAILY MD 05/14/18 Reported Medications Famotidine (PEPCID) 20 Mg Tablet, 20 MG PO QDAY, #10 TAB 05/13/18 Vits W-Ca,Fe,Fa(<1MG) ( VITAMINS) 1 Each Tablet, 1 EACH PO DAILY, TAB 06/14/16 Discontinued Scripts Amoxicillin (AMOXICILLIN) 500 Mg Capsule, 1 CAP PO Q8H, #15 CAPSULE 0 Refills Prov:DAWOOD DALE MD 04/16/18 Follow up Referrals: General Surgery - 05/30/18 @ Surgery, General with Leroy Daily Md You have a follow up appointment scheduled with Dr. Daily on 05/30/18, at 1:00pm. Diet: Regular Activity: As Tolerated Special Instructions: You may remove the dressings on 05/15/18, then you can shower. After showering, leave the incisions open to air but leave the steristrips in place until they fall off on their own. Do not immerse the incisions for 2 weeks. Problem Qualifiers (1) Appendicitis: Appendicitis type: acute appendicitis Acute appendicitis type: with localized peritonitis Qualified Codes: K35.3 - Acute appendicitis with localized peritonitis LEROY DAILY MD May 14, 2018 08:05
[2018-05-14] MEDS: IRON PO SCH (09:00)
[2018-05-14] MEDS: [UNRECOGNIZED DRUG - OTHER] PO SCH (09:00)
[2018-05-14] MEDS: MULTIVIT PO SCH (09:00)
[2018-05-14] MEDS: PRENATAL PO SCH (09:00)
[2018-05-14] MEDS: DOCUSATE SODIUM 100 MG CAP PO SCH (09:38)
[2018-05-14] MEDS: SIMETHICONE 80 MG CHEW CHEW PRN (09:38)
[2018-05-14] MEDS: FAMOTIDINE 20 MG TAB PO SCH (09:38)
== END 2018-05-14 07:58 | disposition home or self-care (01) ==
LOC: ER 01:39 → OR 05:02 → OB 08:00
PROVIDERS: ADMIT Surgery; ATTEND Surgery
DX: O99.612 Diseases of the digestive system complicating pregnancy, second trimester (principal); Z3A.14 14 weeks gestation of pregnancy
CPT/HCPCS: 44970; 76705; 76815; 81001; 83690; 84702; 85025; 86140; 86850; 86900; 86901; 87088; 88304; 99285; G0378; J1100; J1170; J2001; J2405; J2543; J2704; J2795; J3010; J7030; J7050; 82040; 82247; 82310; 82374; 82435; 82565; 82947; 84075; 84132; 84155; 84295; 84450; 84460; 84520

== ENCOUNTER → 2018-10-20 | Outpatient (CLI) | payer OTHER ==
[~2018-10-20] MED LIST changes: +DOCU-202 PO; +FERR159T PO; +LACT1CAP6 PO; +LR(*) 1000 ML BAG 1,000 ML IV PRN; +PER PO; +VIT1TABL4 PO
[2018-10-20 20:18] VITALS: BP 123/64
[2018-10-20 22:37] VITALS: BP 109/67
[2018-10-20 22:41] VITALS: BP 109/67
== END ==
LOC: L&D 19:47 → OB 19:47 → UNDOADMOB 19:47 → UNDODISOB 22:40 → EDSTATUS 10-24 10:36
PROVIDERS: ATTEND Obstetrics & Gynecology
DX: O62.0 Primary inadequate contractions (principal); Z3A.37 37 weeks gestation of pregnancy
CPT/HCPCS: G0378; G0379

== ENCOUNTER 2018-10-31 05:33 | Inpatient (IN) | payer OTHER ==
[~2018-10-31] VITALS: Ht 162.6 cm; Wt 84.8 kg
[~2018-10-31 05:33] MED LIST changes: -LR(*) 1000 ML BAG 1,000 ML IV PRN
[2018-10-31] MEDS ORDERED: OXYTOCIN 30 UNIT/D5LR 500 ML 500 ML IV PRN (05:38)
[2018-10-31] MEDS ORDERED: FAMOTIDINE(*) 20MG/50ML PREMIX 50 ML IVPB PRN (05:38)
[2018-10-31] MEDS ORDERED: METOCLOPRAMIDE 10 MG/2 ML SDV IVP PRN (05:40)
[2018-10-31] MEDS ORDERED: LIDOCAINE/SOD BICARB 8.4% SYR SC PRN (05:40)
[2018-10-31] MEDS ORDERED: fentaNYL CITR 100 MCG/2 ML AMP IVP PRN (05:40)
[2018-10-31] MEDS ORDERED: LIDOCAINE 1% LOCAL 300 MG/30ML INJ PRN (05:40)
[2018-10-31] MEDS ORDERED: TERBUTALINE SULF 1 MG/ML VIAL SUBQ PRN (05:40)
[2018-10-31] MEDS ORDERED: cefOXitin/DEX(*) 2GM/50ML PREM 50 ML IVPB PRN (05:40)
[2018-10-31] MEDS ORDERED: DLR(*) 1000 ML BAG 1,000 ML IV PRN (05:46)
[2018-10-31 06:00] VITALS: BP 120/71; Ht 162.6 cm; Wt 84.8 kg
[2018-10-31] MEDS ORDERED: LR(*) 1000 ML BAG 1,000 ML IV SCH (06:06)
[2018-10-31 06:25] LABS: PLATELET COUNT, AUTOMATED 159 K/uL (150-450)
--- NOTE | 2018-10-31 08:39 | Anesthesia OB Pre-Anes Eval ---
History of Present Illness Anesthesia Start Date: Oct 31, 2018 Anesthesia Start Time: 08:24 OB Anesthesia Diagnosis: induction - elective EDC: Nov 07, 2018 : 2 Para: 1 Vital Signs: Reviewed and within normal limits. Fetus has low baseline but good variability. Pain Ratin Result Diagram: 10/31/18617 Weight (Pounds): 150 Hematology Test 10/31/18 06:18 Red Blood Count 4.72 M/uL (4.17-5.56) Mean Corpuscular Volume 89.6 fL (80.0-96.0) Mean Corpuscular Hemoglobin 29.9 pg (26.0-33.0) Mean Corpuscular Hemoglobin Concent 33.4 g/dL (32.0-36.0) Red Cell Distribution Width 13.9 % (11.5-14.5) Mean Platelet Volume 9.8 fL (7.2-11.1) Neutrophils (%) (Auto) 66.0 % (39.4-72.5) Lymphocytes (%) (Auto) 27.0 % (17.6-49.6) Monocytes (%) (Auto) 5.2 % (4.1-12.4) Eosinophils (%) (Auto) 1.4 % (0.4-6.7) Basophils (%) (Auto) 0.4 % (0.3-1.4) Nucleated RBC Relative Count (auto) 0.0 /100WBC Neutrophils # (Auto) 6.5 K/uL (2.0-7.4) Lymphocytes # (Auto) 2.6 K/uL (1.3-3.6) Monocytes # (Auto) 0.5 K/uL (0.3-1.0) Eosinophils # (Auto) 0.1 K/uL (0.0-0.5) Basophils # (Auto) 0.0 K/uL (0.0-0.1) Nucleated RBC Absolute Count (auto) 0.00 K/uL HIV (1&2) Antibody Negative (NEGATIVE) Chemistry Test 10/31/18 06:18 White Blood Count 9.8 k/uL (4.5-11.0) Red Blood Count 4.72 M/uL (4.17-5.56) Hemoglobin 14.1 g/dL (12.0-16.0) Hematocrit 42.3 % (34.0-47.0) Mean Corpuscular Volume 89.6 fL (80.0-96.0) Mean Corpuscular Hemoglobin 29.9 pg (26.0-33.0) Mean Corpuscular Hemoglobin Concent 33.4 g/dL (32.0-36.0) Red Cell Distribution Width 13.9 % (11.5-14.5) Platelet Count 159 K/uL (150-450) Mean Platelet Volume 9.8 fL (7.2-11.1) Neutrophils (%) (Auto) 66.0 % (39.4-72.5) Lymphocytes (%) (Auto) 27.0 % (17.6-49.6) Monocytes (%) (Auto) 5.2 % (4.1-12.4) Eosinophils (%) (Auto) 1.4 % (0.4-6.7) Basophils (%) (Auto) 0.4 % (0.3-1.4) Nucleated RBC Relative Count (auto) 0.0 /100WBC Neutrophils # (Auto) 6.5 K/uL (2.0-7.4) Lymphocytes # (Auto) 2.6 K/uL (1.3-3.6) Monocytes # (Auto) 0.5 K/uL (0.3-1.0) Eosinophils # (Auto) 0.1 K/uL (0.0-0.5) Basophils # (Auto) 0.0 K/uL (0.0-0.1) Nucleated RBC Absolute Count (auto) 0.00 K/uL HIV (1&2) Antibody Negative (NEGATIVE) Past Medical History Surgical History: noncontributory Previous Anesthesia: other (Prior delivery 2016, NNV - natural) Attended Childbirth Classes?: No Hx Anesthesia Reactions: No Hx Family Anesthesia Reaction: No Current Medications: pitocin Home Meds Active Scripts Oxycodone/Acetaminophen (OXYCODONE/ACETAMINOPHEN 5MG/325 MG) 5 Mg/325 Mg Tab, 1 TAB PO Q4H PRN for MODERATE PAIN, #20 TAB 0 Refills Prov:JOHANA DAILY MD 05/14/18 Docusate Sodium (DOCUSATE SODIUM) 100 Mg Capsule, 1 CAP PO BID, #30 CAPSULE 0 Refills Prov:JOHANA DAILY MD 05/14/18 Reported Medications Famotidine (PEPCID) 20 Mg Tablet, 20 MG PO QDAY, #10 TAB 10/20/18 Lactobacillus Combination No.4 (PROBIOTIC) 1 Each Capsule, 1 EACH PO, CAPSULE 10/20/18 Vit D3/Folic Acid/B2/B6/B12 (FOLGARD TABLET) 1 Each Tablet, 1 EACH PO 10/20/18 Ferrous Sulfate, Dried (IRON) 159 Mg Tablet.er, 159 MG PO 10/20/18 Vits W-Ca,Fe,Fa(<1MG) ( VITAMINS) 1 Each Tablet, 1 EACH PO DAILY, TAB 06/14/16 Allergies: Coded Allergies: latex (Verified Allergy, Unknown, hives, rash, 07/02/16) Assessment and Plan Anesthesia Plan: CSE Assessment: Alert calm parturient with at her side. Her birthing plan is for natural childbirth despite elective induction. She was open to epidural and or other anesthetic options should the induction/labor become prolonged or more painful than her tolerance level. Epidural, spinal and general anesthetic counseling done. Appropriate questions from parturient and entertained. FAVIAN BORDEN TREAD TUBER MACHINE OPERATOR Oct 31, 2018 08:39
--- NOTE | 2018-10-31 13:07 | History & Physical ---
History of Present Illness Age of Patient: 28 : 2 Para or TPAL: 1 EDC per LMP: Nov 07, 2018 Estimated Gestational Age: 39.0 Chief Complaint IOL History of Present Illness Presents for scheduled IOL for elective reasons. has been uncomplicated. Initial CP cysts resolved on later exam. Past Medical, Surgi cathy, Family and Obstetric Histories reviewed. Please see ACOG chart. History Allergies: Coded Allergies: latex (Verified Allergy, Unknown, hives, rash, 07/02/16) Social History: Denies use of tobacco, alcholol, or recreational drugs. Family History: Patient reports no known family medical history. Med Rec Home Meds Active Scripts Oxycodone/Acetaminophen (OXYCODONE/ACETAMINOPHEN 5MG/325 MG) 5 Mg/325 Mg Tab, 1 TAB PO Q4H PRN for MODERATE PAIN, #20 TAB 0 Refills Prov:JOHANA DAILY MD 05/14/18 Docusate Sodium (DOCUSATE SODIUM) 100 Mg Capsule, 1 CAP PO BID, #30 CAPSULE 0 Refills Prov:JOHANA DAILY MD 05/14/18 Reported Medications Famotidine (PEPCID) 20 Mg Tablet, 20 MG PO QDAY, #10 TAB 10/20/18 Lactobacillus Combination No.4 (PROBIOTIC) 1 Each Capsule, 1 EACH PO, CAPSULE 10/20/18 Vit D3/Folic Acid/B2/B6/B12 (FOLGARD TABLET) 1 Each Tablet, 1 EACH PO 10/20/18 Ferrous Sulfate, Dried (IRON) 159 Mg Tablet.er, 159 MG PO 10/20/18 Vits W-Ca,Fe,Fa(<1MG) ( VITAMINS) 1 Each Tablet, 1 EACH PO DAILY, TAB 06/14/16 Review of Systems All Systems Reviewed/Normal: Yes, Except as Noted Exam General Exam Vital Signs Vital Signs Date Time Temp Pulse Resp B/P (MAP) Pulse Ox O2 Delivery O2 Flow Rate FiO2 10/31/18 06:00 97.8 95 18 120/71 (87) 95 Room Air General Apperance: Alert/Awake/No Acute Distress Neuro: No Gross deficits Cardiovascular: Regular Rate and Rhythm Respiratory: No Respiratory Distress Abdomen: Soft, Non-Tender, Non-Distended Extremities: No Cyanosis,Clubbing or Edema Integumentary: Skin Intact without Lesions or Rash Psychological: Alert & Oriented X3, Appropriate Mood & Affect Cervical Dialation: 5 Cervical Effacement (%): 100 Cervical Consistency: Soft Cervical Position: Anterior Station: -1 Presentation: Vertex Fetus Heart Tone Variabilty: Moderate FHT Accelerations: 15X15 FHT Category: I Medical Decision Making Data Points Result Diagram: 10/31/18 0618 VTE Prophylasis: Adult Deep Vein Thrombosis/Pulmonary: No Pharmacological Contraindicati: Pt at Low Risk for VTE Mechanical Contraindications: Pt at Low Risk for VTE Assessment and Plan OUTSIDE SALES REPRESENTATIVE INSURANCE Plan: Routine Labor/Induct Care Problems: (1) 39 weeks gestation of Assessment & Plan: IOL as planned. Pitocin induction with AROM to augment. Expecting . RICHIE RIVERS MD Oct 31, 2018 13:07
--- NOTE | 2018-10-31 15:38 | OB Delivery Note ---
Delivery Note Vaginal Delivery Type: Spont. Vaginal Delivery Delivery Date: Oct 31, 2018 Delivery Time: 15:14 Estimated Gestational Age(wks): 39.0 Infant Sex: Male Repair Needed: Laceration, 1st Degree Estimated Blood Loss: 300 Notes: Presented for elective IOL at 3 cm. Slow latent phase till 1200 when 5 cm. Progressed rapidly after AROM to complete and delivering at 1514. Delivered 2 min prior to my arrival in [place] over first degree laceration. Placenta delivered spontaneously at 1524 and intact. Lac repaired with 2-0 Chromic with 2 figure 8 stitches. No complications. Bleeding light. Security Sales Manager in Attendence: No Copies to: RICHIE RIVERS MD ; RICHIE RIVERS MD Oct 31, 2018 15:38
[2018-10-31] MEDS ORDERED: APAP/HYDROCODONE 325/5 TAB PO PRN (15:40)
[2018-10-31] MEDS ORDERED: GLYCERIN/WITCH HAZEL LEAF 1 PK TOP PRN (15:40)
[2018-10-31] MEDS ORDERED: ACETAMINOPHEN 325 MG TAB PO PRN (15:40)
[2018-10-31] MEDS ORDERED: LANOLIN OINT 7 GM TUBE TP PRN (15:40)
[2018-10-31] MEDS ORDERED: MAGNESIUM HYDROXIDE* 30ML UDCP PO PRN (15:40)
[2018-10-31] MEDS ORDERED: HYDROCORTISONE 2.5% CR 30GM TB PR PRN (15:40)
[2018-10-31] MEDS ORDERED: BENZOCAINE 20% 60 ML BTL TP PRN (15:40)
[2018-10-31] MEDS ORDERED: METHYLERGONOVINE MAL 0.2MG/ML ONE (16:02)
[2018-10-31] MEDS ORDERED: METHYLERGONOVINE MAL 0.2MG/ML IM ONE (16:05)
[2018-10-31 16:38] VITALS: BP 146/94
[2018-10-31] MEDS: IBUPROFEN 800 MG TAB PO SCH (16:39)
[2018-10-31] MEDS ORDERED: LIDOCAINE 1% LOCAL 300 MG/30ML 30 ML ONE (17:45)
[2018-10-31 17:50] VITALS: BP 134/87
[2018-10-31 21:00] VITALS: BP 136/71
[2018-10-31] MEDS: METHYLERGONOVINE MAL 0.2MG TAB PO SCH (22:09)
[2018-10-31] MEDS: DOCUSATE CALCIUM 240 MG CAP PO SCH (22:09)
[2018-11-01] MEDS: IBUPROFEN 800 MG TAB PO SCH ×3 (00:44→17:00)
[2018-11-01 00:45] VITALS: BP 132/77
[2018-11-01 03:40] VITALS: BP 124/77
[2018-11-01] MEDS: METHYLERGONOVINE MAL 0.2MG TAB PO SCH ×3 (03:40→10:00)
[2018-11-01 08:15] VITALS: BP 118/73
[2018-11-01] MEDS: DOCUSATE CALCIUM 240 MG CAP PO SCH (08:53)
[2018-11-01 11:00] VITALS: BP 115/68
[2018-11-01 14:50] VITALS: BP 114/75
--- NOTE | 2018-11-01 17:55 | OB/GYN Progress Note ---
OB Subjective Progress Notes Subjective Doing well. Voiding well and pain well controlled. Bleeding light. GI: NEG Nausea : Voiding Well Pain: Mild OB Objective Physical Exam Vital Signs Date Time Temp Pulse Resp B/P (MAP) Pulse Ox O2 Delivery O2 Flow Rate FiO2 11/01/18 14:50 98.0 76 16 114/75 (88) 94 Room Air Intake and Output 11/01/18 07:00 Intake Total 2510 ml Output Total 1250 ml Balance 1260 ml Intake Oral 1610 ml IV Total 900 ml Output Urine Total 1250 ml # Voids 3 General Appearance: Alert/Awake/No Acute Distress Neurological: No Gross deficits Cardiovascular: Normal Rhythm & Peripheral Pulses, Regular Rate and Rhythm Respiratory: No Respiratory Distress, Clear to Auscultation Abdomen: Soft, Non-Tender, Non-Distended Extremities: No Cyanosis,Clubbing or Edema Integumentary: Skin Intact without Lesions or Rash Psychological: Alert & Oriented X3, Appropriate Mood & Affect Result Diagram: 11/01/18 0546 Assessment and Plan MIRROR INSPECTOR Plan: Routine Post-Op Care Problems: (1) 39 weeks gestation of (2) care and examination immediately after delivery Assessment & Plan: Home later today. Discussed precautions and reviewed questions. F/U at 6 weeks for PP check. RICHIE RIVERS MD Nov 01, 2018 17:55
[2018-11-01] MEDS ORDERED: IBUP800T37 PO (17:57)
--- NOTE | 2018-11-01 17:59 | OB/GYN Discharge Summary ---
Discharge Summary Reason for Hosp/Final Diag: (1) 39 weeks gestation of (2) care and examination immediately after delivery Hospital Course & Plan: Home later today. Discussed precautions and reviewed questions. F/U at 6 weeks for PP check. Lates Vital Signs Vital Signs Date Time Temp Pulse Resp B/P (MAP) Pulse Ox O2 Delivery O2 Flow Rate FiO2 11/01/18 14:50 98.0 76 16 114/75 (88) 94 Room Air Weight (Pounds): 187 Result Diagram: 11/01/18 0546 Condition: Improved Discharge: Home, Self Group Home Meds Active Scripts Oxycodone/Acetaminophen (OXYCODONE/ACETAMINOPHEN 5MG/325 MG) 5 Mg/325 Mg Tab, 1 TAB PO Q4H PRN for MODERATE PAIN, #20 TAB 0 Refills Prov:JOHANA DAILY MD 05/14/18 Docusate Sodium (DOCUSATE SODIUM) 100 Mg Capsule, 1 CAP PO BID, #30 CAPSULE 0 Refills Prov:JOHANA DAILY MD 05/14/18 Reported Medications Famotidine (PEPCID) 20 Mg Tablet, 20 MG PO QDAY, #10 TAB 10/20/18 Lactobacillus Combination No.4 (PROBIOTIC) 1 Each Capsule, 1 EACH PO, CAPSULE 10/20/18 Vit D3/Folic Acid/B2/B6/B12 (FOLGARD TABLET) 1 Each Tablet, 1 EACH PO 10/20/18 Ferrous Sulfate, Dried (IRON) 159 Mg Tablet.er, 159 MG PO 10/20/18 Vits W-Ca,Fe,Fa(<1MG) ( VITAMINS) 1 Each Tablet, 1 EACH PO DAILY, TAB 06/14/16 Follow up Referrals: POCKETS AND PIECES NECKTIE OPERATOR - In Two Weeks @ [facility] with RICHIE RIVERS MD Follow up with: Dr. Rivers [phone] Follow up in: 6 wks PP or PO Discharge Diet: As Tolerates Discharge Activity: As Tolerates, No Heavy Lifting x 6 wks, No Heavy Lifting > 10lb, Pelvic Rest Copies to: RICHIE RIVERS MD ; RICHIE RIVERS MD Nov 01, 2018 17:59
[2018-11-02] MEDS ORDERED: MEASLES,MUMP,RUBELLA VAC 0.5ML SUBQ ONE (09:00)
[2018-11-02] MEDS ORDERED: DIPHTH/TETANUS/ACEL. PERTUSSIS IM ONLY ONE (09:00)
[2018-11-02] MEDS ORDERED: INFLUENZA VIRUS VAC 0.5ML SYR IM ONLY ONE (09:00)
== END 2018-11-01 18:20 | disposition home or self-care (01) | DRG 807 ==
LOC: OB 05:33
PROVIDERS: ADMIT Obstetrics & Gynecology; ATTEND Obstetrics & Gynecology
PROC: 10E0XZZ Delivery of Products of Conception, External Approach (ICD-10-PCS; principal; 2018-10-31)
PROC: 10907ZC Drainage of Amniotic Fluid, Therapeutic from Products of Conception, Via Natural or Artificial Opening (ICD-10-PCS; 2018-10-31)
PROC: 0HQ9XZZ Repair Perineum Skin, External Approach (ICD-10-PCS; 2018-10-31)
PROC: 3E033VJ Introduction of Other Hormone into Peripheral Vein, Percutaneous Approach (ICD-10-PCS; 2018-10-31)
DX: O62.3 Precipitate labor (principal); Z37.0 Single live birth; O70.0 First degree perineal laceration during delivery; Z3A.39 39 weeks gestation of pregnancy
CPT/HCPCS: 36415; 85025; 85027; 86703; 86850; 86900; 86901; J2001; J2210; J2590; J3490; J7120

== ENCOUNTER 2018-11-12 10:32 | Emergency (ER) | payer OTHER ==
[2018-10-31 06:00] VITALS: Wt 84.8 kg
--- NOTE | 2018-11-12 10:35 | ER Report ---
History and Physical Time Seen By MD: 10:35 HPI/ROS CHIEF COMPLAINT: Right flank pain HISTORY OF PRESENT ILLNESS: Patient is a 28-year-old female who states approximately 45 minutes ago she developed sudden onset of right-sided flank pain with radiation to the groin while sitting at home. She states that she felt well prior to the onset of symptoms. She is approximate 2 weeks (Delivery on 10/31/18) from an induction of labor with vaginal delivery that was uncomplicated. Reports the pain is 7 out of 10 and worse with movement. She also noticed some increased vaginal bleeding and passage of a clot this morning. She states that initially she had some nausea but that is improved. Patient had nothing by mouth today. REVIEW OF SYSTEMS: Constitutional: No fever, no chills. Eyes: No discharge. ENT: No sore throat. Cardiovascular: No chest pain, no palpitations. Respiratory: No cough, no shortness of breath. Gastrointestinal: Right flank and abdominal pain. Currently no nausea vomiting or diarrhea Genitourinary: No hematuria. Musculoskeletal: No back pain. Skin: No rashes. Neurological: No headache. Allergies: Coded Allergies: latex (Verified Allergy, Unknown, hives, rash, 11/12/18) Home Meds Active Scripts Amoxicillin/Pot Clav 875-125 Mg Tab (AUGMENTIN 875-125 TABLET) 1 Each Tablet, 1 TAB PO Q12H, #20 TAB 0 Refills Prov:ROXI ESCOBAR MD 11/12/18 Hydrocodone Bit/Acetaminophen (HYDROCODON-ACETAMINOPHEN 5-325) 1 Each Tablet, 1 EACH PO Q4-6H PRN for PAIN, #12 TAB 0 Refills TAKE ONE TABLET BY MOUTH EVERY 4-6 HOURS NEEDED FOR PAIN Prov:ROXI ESCOBAR MD 11/12/18 Methylergonovine Mal 0.2 Mg Tab (METHERGINE 0.2 MG TAB) 0.2 Mg Tablet, 0.2 MG PO Q6H, #15 TAB 0 Refills Prov:ROXI ESCOBAR MD 11/12/18 Ibuprofen (IBUPROFEN) 800 Mg Tablet, 800 MG PO Q8H PRN for PAIN, #30 TAB 0 Refills Prov:RICHIE RIVERS MD 11/01/18 Docusate Sodium (DOCUSATE SODIUM) 100 Mg Capsule, 1 CAP PO BID, #30 CAPSULE 0 Refills Prov:JOHANA DAILY MD 05/14/18 Reported Medications Lactobacillus Combination No.4 (PROBIOTIC) 1 Each Capsule, 1 EACH PO, CAPSULE 10/20/18 Vit D3/Folic Acid/B2/B6/B12 (FOLGARD TABLET) 1 Each Tablet, 1 EACH PO 10/20/18 Ferrous Sulfate, Dried (IRON) 159 Mg Tablet.er, 159 MG PO 10/20/18 Vits W-Ca,Fe,Fa(<1MG) ( VITAMINS) 1 Each Tablet, 1 EACH PO DAILY, TAB 06/14/16 Discontinued Reported Medications Famotidine (PEPCID) 20 Mg Tablet, 20 MG PO QDAY, #10 TAB 10/20/18 Discontinued Scripts Oxycodone/Acetaminophen (OXYCODONE/ACETAMINOPHEN 5MG/325 MG) 5 Mg/325 Mg Tab, 1 TAB PO Q4H PRN for MODERATE PAIN, #20 TAB 0 Refills Prov:JOHANA DAILY MD 05/14/18 Past Medical/Surgical History 2 weeks from induction of labor with vaginal delivery. History of appendicitis with appendectomy in May 2018 Hx Smoking: No Smoking Status: Never Smoker Exposure to Second Hand Smoke?: No Hx Substance Use Disorder: No Hx Alcohol Use: No Constitutional Vital Sign - Last 24 Hours 11/12/18 11/12/18 11/12/18 11/12/18 10:32 10:36 10:39 10:45 Temp 97.5 Pulse ??? 73 Resp 18 B/P (MAP) 120/88 120/88 (99) 101/79 (86) Pulse Ox 92 O2 Delivery Room Air 11/12/18 11/12/18 11/12/18 11/12/18 10:47 11:00 11:02 11:15 Pulse 66 73 B/P (MAP) 98/69 (79) ???/??? (1665) Pulse Ox 95 91 11/12/18 11/12/18 11/12/18 11/12/18 11:17 11:30 11:32 11:37 Pulse ??? 66 70 B/P (MAP) 102/67 (79) Pulse Ox 88 92 11/12/18 11/12/18 11/12/18 11/12/18 11:45 11:52 12:00 12:07 Pulse 65 59 B/P (MAP) 97/69 (78) 89/63 (72) Pulse Ox 92 91 11/12/18 11/12/18 11/12/18 11/12/18 12:15 12:22 12:30 12:35 Pulse 60 60 B/P (MAP) 94/58 (70) 85/50 (62) Pulse Ox 91 91 11/12/18 11/12/18 11/12/18 11/12/18 12:45 12:50 13:00 13:05 Pulse 55 62 B/P (MAP) 96/69 (78) 99/68 (78) Pulse Ox 92 92 11/12/18 11/12/18 11/12/18 11/12/18 13:15 13:20 13:30 13:34 Pulse 76 B/P (MAP) 95/68 (77) 83/50 (61) 98/60 (73) Pulse Ox 91 11/12/18 11/12/18 11/12/18 11/12/18 13:35 13:36 13:38 13:41 Pulse 69 B/P (MAP) 102/75 (84) 103/76 (85) 98/60 (73) 102/75 (84) 103/76 (85) 11/12/18 11/12/18 11/12/18 11/12/18 13:45 13:50 14:00 14:05 Pulse ??? 70 B/P (MAP) 90/64 (73) ???/??? (1665) Pulse Ox 92 91 11/12/18 11/12/18 11/12/18 11/12/18 14:15 14:20 14:25 14:30 Pulse 66 67 B/P (MAP) ???/??? (1665) ???/??? (1665) Pulse Ox 91 91 11/12/18 11/12/18 14:40 14:49 Pulse ??? B/P (MAP) 100/72 (81) 106/77 (87) Physical Exam General Appearance: The patient is alert, has no immediate need for airway protection and no signs of toxicity. [ ] Eyes: Pupils equal and round no pallor or injection. ENT, Mouth: Mucous membranes are moist. Respiratory: There are no retractions, lungs are clear to auscultation. Cardiovascular: Regular rate and rhythm. [ ] Gastrointestinal: Right lower quadrant abdominal pain to palpation no tenderness to percussion no tenderness elicited with heel tap. Right flank pain to palpation and percussion Neurological: Awake and alert Skin: Warm and dry, no rashes. Musculoskeletal: Neck is supple non tender. Extremities are nontender, nonswollen and have full range of motion. Medical Decision Making Data Points Result Diagram: 11/12/18 1351 11/12/18 1048 Laboratory Hematology Test 11/12/18 10:48 11/12/18 13:51 11/12/18 14:39 Sodium Level 139 mmol/L (137-145) Potassium Level 4.2 mmol/L (3.5-5.0) Chloride Level 108 mmol/L (98-107) Carbon Dioxide Level 24 mmol/L (22-31) Blood Urea Nitrogen 19 mg/dl (7-18) Creatinine 0.90 mg/dl (0.52-1.04) Glomerular Filtration Rate Calc > 60.0 Random Glucose 97 mg/dl (75-110) Calcium Level 8.7 mg/dl (8.4-10.2) Total Bilirubin 0.6 mg/dl (0.2-1.3) Aspartate Amino Transf (AST/SGOT) 28 U/L (0-35) Alanine Aminotransferase (ALT/SGPT) 31 U/L (0-56) Alkaline Phosphatase 88 U/L (0-126) Total Protein 7.1 g/dl (6.3-8.2) Albumin 3.8 g/dl (3.5-5.0) Lipase 112 U/L (23-300) Human Chorionic Gonadotropin, Qual Negative (NEGATIVE) Red Blood Count 4.69 M/uL (4.17-5.56) Mean Corpuscular Volume 89.6 fL (80.0-96.0) Mean Corpuscular Hemoglobin 29.3 pg (26.0-33.0) Mean Corpuscular Hemoglobin Concent 32.7 g/dL (32.0-36.0) Red Cell Distribution Width 14.0 % (11.5-14.5) Mean Platelet Volume 8.7 fL (7.2-11.1) Neutrophils (%) (Auto) 83.6 % (39.4-72.5) Lymphocytes (%) (Auto) 12.9 % (17.6-49.6) Monocytes (%) (Auto) 2.7 % (4.1-12.4) Eosinophils (%) (Auto) 0.5 % (0.4-6.7) Basophils (%) (Auto) 0.3 % (0.3-1.4) Nucleated RBC Relative Count (auto) 0.0 /100WBC Neutrophils # (Auto) 12.5 K/uL (2.0-7.4) Lymphocytes # (Auto) 1.9 K/uL (1.3-3.6) Monocytes # (Auto) 0.4 K/uL (0.3-1.0) Eosinophils # (Auto) 0.1 K/uL (0.0-0.5) Basophils # (Auto) 0.0 K/uL (0.0-0.1) Nucleated RBC Absolute Count (auto) 0.00 K/uL Urine Color Yellow Urine Clarity Clear Urine pH 5.0 pH (4.8-9.5) Urine Specific [place] 1.046 Urine Protein Negative mg/dL (NEGATIVE) Urine Glucose (UA) Negative mg/dL (NEGATIVE) Urine Ketones Negative mg/dL (NEGATIVE) Urine Blood Large (NEGATIVE) Urine Nitrite Negative (NEGATIVE) Urine Bilirubin Negative (NEGATIVE) Urine Urobilinogen Negative mg/dL (0.2-1.9) Urine Leukocyte Esterase Moderate (NEGATIVE) Urine RBC 41 /HPF (0-2/HPF) Urine WBC 14 /HPF (0-5/HPF) Urine Squamous Epithelial Cells Few /LPF (</=FEW) Urine Transitional Epithelial Cells Few /LPF (NONE-FEW) Urine Bacteria Few /HPF (NONE-FEW) Urine Mucus Few /HPF (NONE-FEW) Chemistry Test 11/12/18 10:48 11/12/18 13:51 11/12/18 14:39 Glomerular Filtration Rate Calc > 60.0 Calcium Level 8.7 mg/dl (8.4-10.2) Total Bilirubin 0.6 mg/dl (0.2-1.3) Aspartate Amino Transf (AST/SGOT) 28 U/L (0-35) Alanine Aminotransferase (ALT/SGPT) 31 U/L (0-56) Alkaline Phosphatase 88 U/L (0-126) Total Protein 7.1 g/dl (6.3-8.2) Albumin 3.8 g/dl (3.5-5.0) Lipase 112 U/L (23-300) Human Chorionic Gonadotropin, Qual Negative (NEGATIVE) White Blood Count 14.9 k/uL (4.5-11.0) Red Blood Count 4.69 M/uL (4.17-5.56) Hemoglobin 13.7 g/dL (12.0-16.0) Hematocrit 42.1 % (34.0-47.0) Mean Corpuscular Volume 89.6 fL (80.0-96.0) Mean Corpuscular Hemoglobin 29.3 pg (26.0-33.0) Mean Corpuscular Hemoglobin Concent 32.7 g/dL (32.0-36.0) Red Cell Distribution Width 14.0 % (11.5-14.5) Platelet Count 229 K/uL (150-450) Mean Platelet Volume 8.7 fL (7.2-11.1) Neutrophils (%) (Auto) 83.6 % (39.4-72.5) Lymphocytes (%) (Auto) 12.9 % (17.6-49.6) Monocytes (%) (Auto) 2.7 % (4.1-12.4) Eosinophils (%) (Auto) 0.5 % (0.4-6.7) Basophils (%) (Auto) 0.3 % (0.3-1.4) Nucleated RBC Relative Count (auto) 0.0 /100WBC Neutrophils # (Auto) 12.5 K/uL (2.0-7.4) Lymphocytes # (Auto) 1.9 K/uL (1.3-3.6) Monocytes # (Auto) 0.4 K/uL (0.3-1.0) Eosinophils # (Auto) 0.1 K/uL (0.0-0.5) Basophils # (Auto) 0.0 K/uL (0.0-0.1) Nucleated RBC Absolute Count (auto) 0.00 K/uL Urine Color Yellow Urine Clarity Clear Urine pH 5.0 pH (4.8-9.5) Urine Specific [place] 1.046 Urine Protein Negative mg/dL (NEGATIVE) Urine Glucose (UA) Negative mg/dL (NEGATIVE) Urine Ketones Negative mg/dL (NEGATIVE) Urine Blood Large (NEGATIVE) Urine Nitrite Negative (NEGATIVE) Urine Bilirubin Negative (NEGATIVE) Urine Urobilinogen Negative mg/dL (0.2-1.9) Urine Leukocyte Esterase Moderate (NEGATIVE) Urine RBC 41 /HPF (0-2/HPF) Urine WBC 14 /HPF (0-5/HPF) Urine Squamous Epithelial Cells Few /LPF (</=FEW) Urine Transitional Epithelial Cells Few /LPF (NONE-FEW) Urine Bacteria Few /HPF (NONE-FEW) Urine Mucus Few /HPF (NONE-FEW) Urinalysis Test 11/12/18 14:39 Urine Color Yellow Urine Clarity Clear Urine pH 5.0 pH (4.8-9.5) Urine Specific [place] 1.046 Urine Protein Negative mg/dL (NEGATIVE) Urine Glucose (UA) Negative mg/dL (NEGATIVE) Urine Ketones Negative mg/dL (NEGATIVE) Urine Blood Large (NEGATIVE) Urine Nitrite Negative (NEGATIVE) Urine Bilirubin Negative (NEGATIVE) Urine Urobilinogen Negative mg/dL (0.2-1.9) Urine Leukocyte Esterase Moderate (NEGATIVE) Urine RBC 41 /HPF (0-2/HPF) Urine WBC 14 /HPF (0-5/HPF) Urine Squamous Epithelial Cells Few /LPF (</=FEW) Urine Transitional Epithelial Cells Few /LPF (NONE-FEW) Urine Bacteria Few /HPF (NONE-FEW) Urine Mucus Few /HPF (NONE-FEW) EKG/Imaging Imaging FACILITY: [facility] PATIENT NAME: Nathaly Zheng : 1990 MR: [id number] V: [id number] EXAM DATE: [id number] ORDERING PHYSICIAN: ROXI ESCOBAR TECHNOLOGIST: Location: [facility] Patient: Nathaly Zheng : 1990 Visit/Account:[id number] Date of Sevice: 11/12/2018 ABDOMEN/PELVIS WITH CONTRAST HISTORY: right flank and pelvic pain TECHNIQUE: Following administration of IV contrast contiguous axial images acquired through the abdomen/pelvis. Coronal and sagittal reformatting also performed. One of the following dose optimization techniques was utilized in the performance of this exam: Automated exposure control; adjustment of the mA and/or kV according to the patient's size; or use of an iterative reconstruction technique. Specific details can be referenced in the facility's radiology CT exam operational policy. CONTRAST: 75 mL Isovue-370 COMPARISON: None. FINDINGS: Visualized lung bases: Negative. Hepatobiliary: Negative. Spleen: Negative. Adrenals: Negative. Pancreas: Negative. Kidneys ureters or bladder: Negative. No evidence of pyelonephritis or obstruction. Genitalia: There is an unusually large amount of fluid or thickening of the endometrial stripe which measures 29 mm (sagittal image 69). Ovaries are unremarkable. GI: Prominent amount of stool seen in the rectal vault and distal sigmoid colon. Patient status post appendectomy with suture line seen at the cecum. Small bowel unremarkable. Vessels/spaces/nodes: Negative. Bones/soft tissues: Negative. Additional findings: None pertinent. IMPRESSION: Abnormal amount of endometrial fluid versus abnormally thickened endometrial stripe. Recommend pelvic ultrasound for further evaluation. Prominent fecal material in the rectal wall. Correlate with bowel habits to exclude fecal retention. Report Dictated By: Charles Mcneil MD at 11/12/2018 11:41 AM Report E-Signed By: Charles Mcneil MD at 11/12/2018 11:48 AM WSN:[id number] FACILITY: [facility] PATIENT NAME: Nathaly Zheng : 1990 MR: [id number] V: [id number] EXAM DATE: [id number] ORDERING PHYSICIAN: ROXI ESCOBAR TECHNOLOGIST: Location: [facility] Patient: Nathaly Zheng : 1990 Visit/Account:[id number] Date of Sevice: 11/12/2018 PELVIC ultrasound HISTORY: abnormal amount endometrial fluid on CT examination. Vaginal delivery 10/31/2018 TECHNIQUE: Transabdominal ultrasound pelvis. COMPARISON: CT 11/12/2018 FINDINGS: Uterus: 11.4 x 6.2 x 8.8 cm. Myometrium: Unremarkable. Endometrium: Abnormally thickened measuring 27 mm with heterogeneity and a small amount of internal vascularity. Cervix: Grossly negative. Right ovary: 3.6 x 1.6 x 2.8 cm. No concerning masses. Normal arterial and venous flow. Left ovary: 3.4 x 1.9 x 2.2 cm. No concerning masses. Normal arterial and venous flow. Free pelvic fluid: None. Other findings: None significant IMPRESSION: 1. Findings highly concerning for retained products of conception. Endometrium measures 27 mm in thickness with heterogeneity and internal vascularity. 2. Normal ovaries. Report Dictated By: Jassi Bender MD at 11/12/2018 1:20 PM Report E-Signed By: Jassi Bender MD at 11/12/2018 1:24 PM WSN:[id number] ED Course/Re-evaluation Clinical Indication for ER IV: Hydration, IV Access ED Course Plan at this time will be to place an IV we'll check blood work for abdominal labs. A bedside ultrasound was performed which revealed normal appearance of the right kidney. We'll perform CT scan of the abdomen and pelvis. We'll give IV morphine for pain and Zofran for nausea. 11/12/2018 11:13:31 am abdominal pain improved after 4 of IV morphine. 11/12/2018 2:07:49 pm pain still well controlled. Orthostatic vital signs are negative. I'm repeating a hemoglobin and then we'll discuss the case with Dr. Rivers 11/12/2018 2:33:[address] Rivers again; where hemoglobin drop of approximately 1.5 g after 2 L of saline. I also aware normal vital signs and orthostatics. However white blood cell count did go from 8.2-14. Plan at this time will be to place the patient on Methergine Dr. Rivers explained that he would like to place the patient on Methergine for at least 48 hours to increase uterine tenderness to deep prior to a D&C. He will see the patient on Wednesday. Patient does have a follow-up at that time. Explained that if patient requires a D&C she would like to have it done before the of the year because of insurance purposes. We will also place the patient on Augmentin for presumed early endometritis. Was counseled to return if abdominal pain worsens or if she starts to have severe vaginal bleeding greater than 1 pad per hour for 2-3 hours. Or she develops fever at any time. Decision to Disposition Date: Nov 12, 2018 Decision to Disposition Time: 14:36 Depart Departure Latest Vital Signs Vital Signs Date Time Temp Pulse Resp B/P (MAP) Pulse Ox O2 Delivery O2 Flow Rate FiO2 11/12/18 14:49 106/77 (87) 11/12/18 14:40 ??? 11/12/18 14:25 91 11/12/18 10:36 97.5 18 Room Air Impression: Primary Impression: Retained products of conception Additional Impression: Endometritis Condition: Improved Disposition: HOME OR SELF-CARE New Scripts Amoxicillin/Pot Clav 875-125 Mg Tab (AUGMENTIN 875-125 TABLET) 1 Each Tablet 1 TAB PO Q12H, #20 TAB 0 Refills Prov: ROXI ESCOBAR MD 11/12/18 Hydrocodone Bit/Acetaminophen (HYDROCODON-ACETAMINOPHEN 5-325) 1 Each Tablet 1 EACH PO Q4-6H PRN for PAIN, #12 TAB 0 Refills TAKE ONE TABLET BY MOUTH EVERY 4-6 HOURS NEEDED FOR PAIN Prov: ROXI ESCOBAR MD 11/12/18 Methylergonovine Mal 0.2 Mg Tab (METHERGINE 0.2 MG TAB) 0.2 Mg Tablet 0.2 MG PO Q6H, #15 TAB 0 Refills Prov: ROXI ESCOBAR MD 11/12/18 Patient Instructions: Endometritis (ED) Additional Instructions: Start taking your Methergine when you get home and then every 6 hours Take your Augmentin one tablet by mouth every 12 hours until complete Follow-up as scheduled with Dr. Rivers on Wednesday. If at any point he develops fever, vaginal bleeding greater than 1 pad per hour for more than 2-3 hours, worsening abdominal pain, weakness or dizziness you should return to the emergency department for reevaluation. Problem Qualifiers ROXI ESCOBAR MD Nov 12, 2018 10:35
[2018-11-12] MEDS ORDERED: NS(*) 0.9% 1000 ML BAG 1,000 ML IV ONE ×2 (10:44→12:40)
[2018-11-12] MEDS ORDERED: MORPHINE 4 MG/ML SDV IVP ONE (10:50)
[2018-11-12] MEDS ORDERED: ONDANSETRON 4 MG/2 ML VIAL IVP ONE (10:50)
[2018-11-12 11:08] LABS: PLATELET COUNT, AUTOMATED 257 K/uL (150-450)
[2018-11-12] MEDS ORDERED: IOPAMIDOL 76% 75 ML INFUS BTL 75 ML ONE (11:18)
--- NOTE | 2018-11-12 11:52 | RADIOLOGY IMAGING REPORT ---
FACILITY: [facility] [place] PATIENT NAME: Nathaly Zheng : 1990 MR: [id number] V: [id number] EXAM DATE: ORDERING PHYSICIAN: ROXI ESCOBAR TECHNOLOGIST: Location: [facility] [place] Patient: Nathaly Zheng : 1990 Visit/Account:[id number] Date of Sevice: 11/12/2018 ABDOMEN/PELVIS WITH CONTRAST HISTORY: right flank and pelvic pain TECHNIQUE: Following administration of IV contrast contiguous axial images acquired through the abdom en/pelvis. Coronal and sagittal reformatting also performed. One of the following dose optimization techniques was utilized in the performance of this exam: Automated exposure control; adjustment of t he mA and/or kV according to the patient's size; or use of an iterative reconstruction technique. S pecific details can be referenced in the facility's radiology CT exam operational policy. CONTRAST: 75 mL Isovue-370 COMPARISON: None. FINDINGS: Visualized lung bases: Negative. Hepatobiliary: Negative. Spleen: Negative. Adrenals: Negative. Pancreas: Negative. Kidneys ureters or bladder: Negative. No evidence of pyelonephritis or obstruction. Genitalia: There is an unusually large amount of fluid or thickening of the endometrial stripe which measures 29 mm (sagittal image 69). Ovaries are unremarkable. GI: Prominent amount of stool seen in the rectal vault and distal sigmoid colon. Patient status post appendectomy with suture line seen at the cecum. Small bowel unremarkable. Vessels/spaces/nodes: Negative. Bones/soft tissues: Negative. Additional findings: None pertinent. IMPRESSION: Abnormal amount of endometrial fluid versus abnormally thickened endometrial stripe. Recommend pelvic ultrasound for further evaluation. Prominent fecal material in the rectal wall. Correlate with bowel habits to exclude fecal retention. Report Dictated By: Charles Mcneil MD at 11/12/2018 11:41 AM Report E-Signed By: Charles Mcneil MD at 11/12/2018 11:48 AM WSN:[id number]
--- NOTE | 2018-11-12 13:29 | RADIOLOGY IMAGING REPORT ---
FACILITY: [facility] PATIENT NAME: Nathaly Zheng : 1990 MR: [id number] V: [id number] EXAM DATE: ORDERING PHYSICIAN: ROXI ESCOBAR TECHNOLOGIST: Location: [facility] Patient: Nathaly Zheng : 1990 Visit/Account:[id number] Date of Sevice: 11/12/2018 PELVIC ultrasound HISTORY: abnormal amount endometrial fluid on CT examination. Vaginal delivery 10/31/2018 TECHNIQUE: Transabdominal ultrasound pelvis. COMPARISON: CT 11/12/2018 FINDINGS: Uterus: 11.4 x 6.2 x 8.8 cm. Myometrium: Unremarkable. Endometrium: Abnormally thickened measuring 27 mm with heterogeneity and a small amount of internal v ascularity. Cervix: Grossly negative. Right ovary: 3.6 x 1.6 x 2.8 cm. No concerning masses. Normal arterial and venous flow. Left ovary: 3.4 x 1.9 x 2.2 cm. No concerning masses. Normal arterial and venous flow. Free pelvic fluid: None. Other findings: None significant IMPRESSION: 1. Findings highly concerning for retained products of conception. Endometrium measures 27 mm in thic kness with heterogeneity and internal vascularity. 2. Normal ovaries. Report Dictated By: Jassi Bender MD at 11/12/2018 1:20 PM Report E-Signed By: Jassi Bender MD at 11/12/2018 1:24 PM WSN:[id number]
[2018-11-12 14:20] LABS: PLATELET COUNT, AUTOMATED 229 K/uL (150-450)
[2018-11-12] MEDS ORDERED: APAP/HYDROCODONE 325/5 TAB PO ONE (14:35)
[2018-11-12] MEDS ORDERED: AMOX-559 PO (14:39)
[2018-11-12] MEDS ORDERED: LOR5/325 PO (14:39)
[2018-11-12] MEDS ORDERED: METH0.2T6 PO (14:39)
[2018-11-12 14:49] VITALS: BP 106/77
== END 2018-11-12 14:52 | disposition home or self-care (01) ==
LOC: ER 10:35
DX: O72.2 Delayed and secondary postpartum hemorrhage (principal); N71.9 Inflammatory disease of uterus, unspecified
CPT/HCPCS: 36415; 74177; 76856; 81001; 83690; 84703; 85025; 96361; 96374; 96375; 99284; J2270; J2405; J7030; Q9967; 82040; 82247; 82310; 82374; 82435; 82565; 82947; 84075; 84132; 84155; 84295; 84450; 84460; 84520

== ENCOUNTER 2018-11-14 10:51 | Day surgery (SDC) | payer OTHER ==
[2018-10-31 06:00] VITALS: Ht 162.6 cm; Wt 77.1 kg
[~2018-11-14] VITALS: Ht 162.6 cm; Wt 77.1 kg
[2018-11-14] VITALS (12 sets, daily range): BP systolic 91–120; BP diastolic 53–85
[~2018-11-14 10:51] MED LIST changes: +AMOX-559 PO; +LOR5/325 PO; +METH0.2T6 PO
[2018-11-14] MEDS ORDERED: FAMOTIDINE 20 MG/50 ML PREMIX IVPB ONE (10:55)
[2018-11-14] MEDS ORDERED: NORMOSOL R SOLN(*) 1000 ML BAG 1,000 ML IV PRN (10:55)
[2018-11-14] MEDS ORDERED: MIDAZOLAM 2 MG/2 ML VIAL IVP PRN (10:55)
[2018-11-14] MEDS ORDERED: LIDOCAINE/SOD BICARB 8.4% SYR ID ONE (10:55)
[2018-11-14] MEDS ORDERED: cefOXitin/DEX(*) 2GM/50ML PREM 50 ML IVPB ONE (11:05)
[2018-11-14 11:26] LABS: PLATELET COUNT, AUTOMATED 225 K/uL (150-450)
[2018-11-14] MEDS ORDERED: LR(*) 1000 ML BAG 1,000 ML IV ONE (12:10)
--- NOTE | 2018-11-14 12:13 | Short(Outpt) Discharge Summary ---
Discharge Summary Reason for Hosp/Final Diag: (1) Retained products of conception after delivery without hemorrhage Status: Acute Hospital Course & Plan: s/p suction d&c Departure Discharge to: Home, Self Care Discharge Instructions Home Meds Active Scripts Amoxicillin/Pot Clav 875-125 Mg Tab (AUGMENTIN 875-125 TABLET) 1 Each Tablet, 1 TAB PO Q12H, #20 TAB 0 Refills Prov:ROXI ESCOBAR MD 11/12/18 Hydrocodone Bit/Acetaminophen (HYDROCODON-ACETAMINOPHEN 5-325) 1 Each Tablet, 1 EACH PO Q4-6H PRN for PAIN, #12 TAB 0 Refills TAKE ONE TABLET BY MOUTH EVERY 4-6 HOURS NEEDED FOR PAIN Prov:ROXI ESCOBAR MD 11/12/18 Methylergonovine Mal 0.2 Mg Tab (METHERGINE 0.2 MG TAB) 0.2 Mg Tablet, 0.2 MG PO Q6H, #15 TAB 0 Refills Prov:ROXI ESCOBAR MD 11/12/18 Ibuprofen (IBUPROFEN) 800 Mg Tablet, 800 MG PO Q8H PRN for PAIN, #30 TAB 0 Refills Prov:RICHIE RIVERS MD 11/01/18 Docusate Sodium (DOCUSATE SODIUM) 100 Mg Capsule, 1 CAP PO BID, #30 CAPSULE 0 Refills Prov:JOHANA DAILY MD 05/14/18 Reported Medications Lactobacillus Combination No.4 (PROBIOTIC) 1 Each Capsule, 1 EACH PO, CAPSULE 10/20/18 Vit D3/Folic Acid/B2/B6/B12 (FOLGARD TABLET) 1 Each Tablet, 1 EACH PO 10/20/18 Ferrous Sulfate, Dried (IRON) 159 Mg Tablet.er, 159 MG PO 10/20/18 Vits W-Ca,Fe,Fa(<1MG) ( VITAMINS) 1 Each Tablet, 1 EACH PO DAILY, TAB 06/14/16 Discontinued Reported Medications Famotidine (PEPCID) 20 Mg Tablet, 20 MG PO QDAY, #10 TAB 10/20/18 Discontinued Scripts Oxycodone/Acetaminophen (OXYCODONE/ACETAMINOPHEN 5MG/325 MG) 5 Mg/325 Mg Tab, 1 TAB PO Q4H PRN for MODERATE PAIN, #20 TAB 0 Refills Prov:JOHANA DAILY MD 05/14/18 Follow up Referrals: [facility] [employer] [employer] - In Two Weeks @ [facility] with RICHIE RIVERS MD Diet: Regular Activity: As Tolerated Copies to: RICHIE RIVERS MD ; RICHIE RIVERS MD Nov 14, 2018 12:13
--- NOTE | 2018-11-14 12:18 | Post Operative Note ---
Operative Note - [employer] Operative Day Date: Nov 14, 2018 Time: 12:13 Physicians Surgeon: Mildred Anesthesia: GenLMA Diagnosis Pre-Op Diagnosis: retained POC Post-Op Diagnosis: same Procedure Findings: dilated 10 mm Procedure(s): suction dilation and currettage Specimen Removed:(Maybe N/A): POC Complications: [id number] Fluids Fluids: 800 ml Estimated Blood Loss: 100 ml Dictated Date OP Note Dictated: Nov 14, 2018 Time OP Note Dictated: 12:14 Copies to: RICHIE RIVERS MD ; RICHIE RIVERS MD Nov 14, 2018 12:17
--- NOTE | 2018-11-14 13:16 | OPERATIVE REPORT 1 ---
EVENT DATE: November 14, 2018 SURGEON: Joaquin Levy MD ANESTHESIOLOGIST: [] ANESTHESIA: General LMA. FINISH SANDER: [none] PREOPERATIVE DIAGNOSIS Retained products of conception. POSTOPERATIVE DIAGNOSIS Retained products of conception. PROCEDURE PERFORMED Suction dilation and curettage. ESTIMATED BLOOD LOSS 100 cc. FLUIDS 800 cc IV crystalloid. INDICATIONS Pleasant 28-year-old who is approximately two weeks with episode of right lower quadrant abdominal pain and cramping along with increase in bleeding who was seen in the emergency room over the weekend, evaluated by ultrasound and found to have fluid and suspicious products of conception contained within the uterus so she was treated as an outpatient initially with antibiotics and Methergine in attempt to expel the uterine contents and she presented to the office today for further evaluation. Ultrasound again revealed heterogeneous thickened endometrial contents consistent with products of conception. Otherwise normal. PROCEDURE IN DETAIL Patient was brought to the operating room with a working IV, placed in the dorsal supine position. She was placed under general LMA anesthesia and moved to the dorsal lithotomy position. She was then prepped and draped in the usual sterile fashion. Weighted speculum was placed in the vagina. The cervix was grasped on the anterior lip with a single-tooth tenaculum. It was elevated and tested against a 1 cm Hegar dilator and was dilated sufficiently at that amount. Therefore, a size 10 curb suction curette was selected, assembled, passed through the cervix into the uterus and suction was applied to a pressure of 40 mmHg while it was rotated about and gradually withdrawn. A large amount of products of conception, clot and blood were evacuated. A second pass revealed a scant amount and, therefore, sharp Bovine curette was used to curettage all four quadrants of the uterine wall until a gritty texture was palpable. One last pass with the curve suction curette removed a scant amount of tissue and blood. Therefore, the procedure was terminated. All instruments were removed from the cervix. Bleeding was scant upon completion. Her legs were brought back to the supine position. She was awakened from general anesthesia in stable condition and taken to recovery. Sponge, lap, needle and instrument counts were all correct x3.] MTDD
[2018-11-14] MEDS ORDERED: METHYLERGONOVINE MAL 0.2MG TAB PO ONE (13:50)
[2018-11-14] MEDS ORDERED: MISOPROSTOL 200 MCG TAB PO ONE (14:45)
--- NOTE | 2018-11-14 15:33 | NUR ---
1315 PT REC'D IN SD VIA CART, SBAR HAND OFF BY Belkis BRANNON, RN. VSS, REPORTED SMALL AMT OF BLOOD ON PAD, HYPOACTIVE BS, LUNGS CTA 1320 PT TOLERATING JELLO, CHEESE, CRACKERS, AND APPLE JUICE, PAD SATURATED, CHANGED 1330 ORTHOSTATIC VITALS STARTED, GUSH OF BLOOD WITH MOVEMENT, CHANGED, VSS 1335 PT UP TO BATHROOM, SATURATED PAD, CHANGED ON OWN, WIPES USED TO CLEAN UP, VOIDED, REPORTS PASSING [id number] CLOT 1343 PAD SATURATED AGAIN, CHANGED, LARGE 3X1 CLOT [address] RIVERS, VERBAL ORDER TO GIVE 0.2MG METHERGINE AND TELL PT TO CONTINUE Q6 AT HOME 1400 ADMINISTERED METHERGINE, VSS 1403 CHECKED PAD, NO INCREASE IN BLEEDING, LARGE CLOT PASSED, DARK RED 1415 BP LOWER THAN IT HAS BEEN, STAYING STEADY IN LOW 90S/50S FOR SEVERAL CYCLES 1435 PAD SATURATED AGAIN, CHANGED, PT REPORTS FEELING TIRED 1440 PT TOLERATING CHEESE, CRACKERS, JELLO, AND APPLE JUICE [address] COY, VERBAL ORDER TO GIVE 800MCG CYTOTEC, OBSERVE PT FOR 1 HR, SEND HOME WITH EXPECTATION THAT BLEEDING IMPROVES BY MORNING OR PT SHOULD RETURN TO ER, RETURN TO ER IF BLEEDING WORSENS, CALL LIGHT IN PT ROOM, PT REPORTS LARGE GUSH, CHANGED PAD, PT PASSED LARGE CLOT 4X4IN BRIGHT RED, PLACED LARGE DORON PAD, VSS 1519 CYTOTEC GIVEN, PT DENIES PAIN, N/V
--- NOTE | 2018-11-14 16:55 | NUR ---
1530 VSS 1553 CHECKED ON PT NO INCREASE IN BLEEDING, 1 2X2 CLOT, DARK RED, DENIES CRAMPING/DIARRHEA 1618 PT STOOD UP TO DRESS, FELT GUSH, LARGE 4X4 CLOT IN PAD, DARK RED 1622 PC TO ISAAC, PT READY TO P/U 1630 PT PC TO MOTHER, LEE TO COME P/U, D/C INSTRUCTIONS COVERED 1635 D/C IV, PRESSURE DRESSING, INSTRUCTED ON TRACKING BLEEDING ON DRAINAGE CARDS 1640 REVIEWED D/C INSTRUCTIONS WITH MOTHER, NO QUESTIONS AT THIS TIME 1645 WALKED PT TO VEHICLE OUTSIDE OR ER, STEADY ON FEET, ALL BELONGINGS WITH PT, SELF TRANSFERRED TO [facility] WITHOUT INCIDENT
== END 2018-11-14 13:15 | disposition home or self-care (01) ==
LOC: OR 10:51
PROVIDERS: ATTEND Obstetrics & Gynecology
DX: O73.1 Retained portions of placenta and membranes, without hemorrhage (principal)
CPT/HCPCS: 36415; 59160; 84703; 85025; 88305; J0694; J1100; J1885; J2001; J2250; J2405; J2704; J3010; J3490